=== PATIENT | female | born 1980 | race Caucasian/White ===

== ENCOUNTER 2019-05-05 09:59 | Outpatient (CLI) | payer BC, SELFPAY ==
--- NOTE | 2019-05-05 10:04 | MM_ITS ---
WS: [id number] DIAGNOSTIC BILATERAL DIGITAL MAMMOGRAM WITH CAD LEFT breast ultrasound, limited HISTORY: Palpable area LEFT breast. COMPARISON: None available. TECHNIQUE: Bilateral craniocaudad, mediolateral oblique, and mediolateral views are submitted. Spot c ompression LEFT CC and MLO. Computer aided detection utilized. Breast composition: The breasts are heterogeneously dense, which may obscure small masses. Triangular marker is placed near 6:00. There is no underlying abnormality noted radiographically. No soft tissu e thickening or distortion. LEFT breast ultrasound, limited. Ultrasound is directed to the palpable abnormality at 6 o'clock adjacent to the areola. There is a sm all complex cyst measuring 9 x 5 x 8 mm without increased vascularity. As this is not a simple cyst f urther evaluation is necessary. Recommend 6 month LEFT breast ultrasound follow-up of the complex cyst at 6:00. MM/[place] [id number] IMPRESSION: BI-RADS: 3-Probably Benign FOLLOW UP: 6 Month Follow-up
--- NOTE | 2019-05-05 10:09 | US_ITS ---
WS: [id number] DIAGNOSTIC BILATERAL DIGITAL MAMMOGRAM WITH CAD LEFT breast ultrasound, limited HISTORY: Palpable area LEFT breast. COMPARISON: None available. TECHNIQUE: Bilateral craniocaudad, mediolateral oblique, and mediolateral views are submitted. Spot c ompression LEFT CC and MLO. Computer aided detection utilized. Breast composition: The breasts are heterogeneously dense, which may obscure small masses. Triangular marker is placed near 6:00. There is no underlying abnormality noted radiographically. No soft tissu e thickening or distortion. LEFT breast ultrasound, limited. Ultrasound is directed to the palpable abnormality at 6 o'clock adjacent to the areola. There is a sm all complex cyst measuring 9 x 5 x 8 mm without increased vascularity. As this is not a simple cyst f urther evaluation is necessary. Recommend 6 month LEFT breast ultrasound follow-up of the complex cyst at 6:00. US/US breast LT limited* [id number] IMPRESSION: BI-RADS: 3-Probably Benign FOLLOW UP: 6 Month Follow-up
== END 2019-05-05 10:00 | disposition home or self-care (01) ==
LOC: RADSHAW 09:59
PROVIDERS: Family Provider Family Medicine; PCP Family Medicine; Visit Provider Family Medicine
DX: N60.02 Solitary cyst of left breast (principal); N63.20 Unspecified lump in the left breast, unspecified quadrant
CPT/HCPCS: 76642; 77066

== ENCOUNTER 2019-07-07 14:59 | Inpatient (IN) | payer BC, SELFPAY ==
[2019-07-07] VITALS (81 sets, daily range): BP systolic 129–166; BP diastolic 81–105; PULSE 65–134; RESP 14–18; TEMP 36.8–37.2; O2SAT 83–100; BMI 33.8
--- NOTE | 2019-07-07 15:00 | ECG_ITS ---
Measurements Intervals [place] Rate: 134 P: 50 AR: 132 QRS: 15 QRSD: 87 T: 49 QT: 331 QTc: [address] & T-WAVE ABNORMALITY No previous ECG available for comparison Electronically Signed On 07-07-2019 21:55:17 CDT by Mignon Hollingsworth M.D. [email or web address]
--- NOTE | 2019-07-07 15:00 | XR_ITS ---
WS: [id number] PORTABLE CHEST HISTORY: Overdose. COMPARISON: None available. Decreased lung volumes due to poor inspiration. No pneumonia. No pleural effusion or pneumothorax. Cardiac size: Normal. Mediastinum/Aorta: Normal mediastinum. No osseous abnormality seen. XR/XR chest 1V portable [id number] IMPRESSION: Poor inspiration. Otherwise negative.
--- NOTE | 2019-07-07 15:11 | ED_ITS ---
HPI - Overdose General: Chief Complaint: Overdose Stated Complaint: PROBABLE OVERDOSE Time Seen by Provider: 07/07/19 15:00 Source: EMS Mode of arrival: EMS Limitations: altered mental status History of Present Illness: HPI Narrative: 39-year-old female who took an unknown amount of Ambien and intent to kill her self. She does have an empty bottle of 10 mg Ambien's that originally had 30 in it. Patient here will wake to painful stimuli but is unable to give any full history. complaint: intentional overdose Onset (ago): hour(s) Review of Systems General: Reports: ROS unobtainable due to mental status [facility] ED PFS: Medical History Abnormal uterine bleeding 03/05/2018---> TSH-0.99 for normal CBC-5.6<11.5/35.3> 424 --Mirena IUD (Lot number [id number], Expiration Date: 08/2020) placed on 04/04/2018 without difficulty. She has largely no cycles on the Mirena and is extremely happy with this effect. Bipolar disorder, unspecified Managed on medication by her primary care provider Dr. Beverly. No pertinent past medical history Hypertension, Diabetes, Heart Disease, Stroke, Hypercholesterolemia, Thyroid Problems, Breast Cancer, Ovarian Cancer, Uterine Cancer, Colon Cancer, DVT/PE. Her primary care provider is Dr. Beverly Surgical History S/P section x 3 --1997, 2003, 2006. S/P cholecystectomy Laparoscopic surgery in 2001 S/P tubal ligation 2006 during section Family History Family/Other Diabetes Maternal aunt, maternal uncle, Paternal aunt, paternal uncle Thyroid condition maternal aunt Grandmother Diabetes Maternal and paternal Uterine cancer paternal, age at diagnosis unknown Stroke maternal Grandfather Diabetes maternal Heart disease maternal Mother Hyperlipidemia Autoimmune disorder affecting Brother Hyperlipidemia Hypertension Denies family history of Colon cancer Ovarian cancer Breast cancer Social History (Updated 07/07/19 @ 16:38 by Myke Clark MD) Smoking and tobacco status: unknown if ever smoked Alcohol intake: never Substance/Drug Use: never Additional social history: - Tobacco Use: Started smoking at age 15 and smoked one pack per day until she quit at age 20. Denies any tobacco use since then. 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 Physical Exam Const: COMMON NORMALS: apparent distress, negative for patient oriented x3 and negative for alert EXAM LIMITATIONS: altered mental status HENMT: COMMON NORMALS: normocephalic and atraumatic HEAD & SCALP: normocephalic and atraumatic Eye: COMMON NORMALS: Equal, round and reactive pupils present and EOMs intact bilaterally PUPIL: Yes Equal, round and reactive pupils present Neck/C-Spine: COMMON NORMALS: full ROM and supple Chest: COMMONS NORMALS: normal inspection of the chest and normal palpation of entire chest wall Resp: COMMON NORMALS: normal respiratory effort, No retractions, No use of accessory muscles and clear to auscultation bilaterally AUSCULTATION: clear to auscultation bilaterally Cardio: COMMON NORMALS: regular rate, regular rhythm and No murmurs present (Cardio) RATE: regular rate RHYTHM: regular rhythm GI: COMMON NORMALS: Normal to inspection, nondistended, normoactive bowel sounds present, Soft to palpation, non-tender and no masses PALPATION: Yes Soft to palpation Extremity: COMMON NORMALS: normal to inspection and full ROM Neuro: COMMON NORMALS: moves all extremities; negative for patient oriented x3 SENSORIUM/ORIENTATION: No alert Psych: COMMON NORMALS: negative for mental status grossly normal Skin: COMMON NORMALS: no rashes or lesions noted and no wounds GENERAL SKIN EXAM: no rashes or lesions noted Course Vital Signs: Vital signs: Vital Signs Temperature 98.9 F 07/07/19 15:00 Pulse Rate 134 H 07/07/19 16:01 Respiratory Rate 16 07/07/19 16:01 Blood Pressure 153/98 07/07/19 16:01 Pulse Oximetry 98 07/07/19 16:01 MDM - Overdose MDM Narrative: Medical decision making narrative: Patient presents here with altered mental status likely from an overdose. Patient overdosed on Ambien and has been lethargic here but is protecting her own airway. Spoke to Dr. Lees and will admit to the ICU. Patient also placed under a 96-hour hold. Lab Data: Labs: Lab Results 05/07/07/19 07/07/19 Range/Units 15:30 15:30 16:01 WBC 9.4 (4.0-10.0) 10^3/ uL RBC 4.83 (4.1-5.3) 10^6/u L Hgb 14.2 (11.5-15.3) g/dL Hct 43.3 (37.0-47.0) % MCV 89.6 (81-99) fL MCH 29.4 (28.0-34.0) pg MCHC 32.8 (30.0-36.0) g/dL RDW 12.8 (12.1-15.1) % Plt Count 394 (130-400) 10^3/c mm MPV 10.4 (7.4-10.4) fL Neut % (Auto) 75.2 % Lymph % (Auto) 19.5 % [place] % (Auto) 4.6 % Eos % (Auto) 0.1 % Baso % (Auto) 0.3 % Neut # (Auto) 7.1 (1.8-7.7) 10^3/u L Lymph # (Auto) 1.8 (0.8-4.8) 10^3/u L [place] # (Auto) 0.4 (0.2-0.9) 10^3/u L Eos # (Auto) 0.0 (0.0-0.8) 10^3/u L Baso # (Auto) 0.0 (0.0-0.1) 10^3/u L Nucleated RBC % (a uto) 0 % Nucleated RBCs # 0.0 /100WBC Sodium 140 (136-145) mmol/L Potassium 4.1 (3.5-5.1) mmol/L Chloride 104 (98-107) mmol/L Carbon Dioxide 22 (22-29) mmol/L Anion Gap 18.1 (5-19) BUN 6 (6-20) mg/dL Creatinine 0.6 (0.5-0.9) mg/dL GFR Calculation 111.9 (90-130) mL/min Glucose 112 (65-115) mg/dL Calculated Osmolal ity 287 (285-295) mOsm/k g Calcium 9.5 (8.5-10.5) mg/dL Total Bilirubin 0.5 (0.15-1.2) mg/dL AST 17 (0-32) U/L ALT 15 (0-33) U/L Alkaline Phosphata se 90 (35-105) IU/L Total Protein 7.0 (6.6-8.7) g/dL Albumin 4.6 (3.5-5.2) g/dL Globulin 2.4 (1.3-4.6) g/dL HCG, Qual Negative (Negative) Salicylates < 0.3 L (3-10) mg/dL Urine Opiates Scre en (Negative) ng/mL Acetaminophen < 5.0 L (10-30) ug/mL Ur Barbiturates Sc reen (Negative) ng/mL Ur Phencyclidine S crn (Negative) ng/mL Ur Amphetamines Sc reen (Negative) ng/mL U Benzodiazepines Scrn (Negative) ng/mL Urine Cocaine Scre en (Negative) ng/mL U Marijuana (THC) Screen (Negative) ng/mL Ethyl Alcohol < 10 (0-10) mg/dL 07/07/19 Range/Units 16:01 WBC (4.0-10.0) 10^3/ uL RBC (4.1-5.3) 10^6/u L Hgb (11.5-15.3) g/dL Hct (37.0-47.0) % MCV (81-99) fL MCH (28.0-34.0) pg MCHC (30.0-36.0) g/dL RDW (12.1-15.1) % Plt Count (130-400) 10^3/c mm MPV (7.4-10.4) fL Neut % (Auto) % Lymph % (Auto) % [place] % (Auto) % Eos % (Auto) % Baso % (Auto) % Neut # (Auto) (1.8-7.7) 10^3/u L Lymph # (Auto) (0.8-4.8) 10^3/u L [place] # (Auto) (0.2-0.9) 10^3/u L Eos # (Auto) (0.0-0.8) 10^3/u L Baso # (Auto) (0.0-0.1) 10^3/u L Nucleated RBC % (a uto) % Nucleated RBCs # /100WBC Sodium (136-145) mmol/L Potassium (3.5-5.1) mmol/L Chloride (98-107) mmol/L Carbon Dioxide (22-29) mmol/L Anion Gap (5-19) BUN (6-20) mg/dL Creatinine (0.5-0.9) mg/dL GFR Calculation (90-130) mL/min Glucose (65-115) mg/dL Calculated Osmolal ity (285-295) mOsm/k g Calcium (8.5-10.5) mg/dL Total Bilirubin (0.15-1.2) mg/dL AST (0-32) U/L ALT (0-33) U/L Alkaline Phosphata se (35-105) IU/L Total Protein (6.6-8.7) g/dL Albumin (3.5-5.2) g/dL Globulin (1.3-4.6) g/dL HCG, Qual (Negative) Salicylates (3-10) mg/dL Urine Opiates Scre en Negative (Negative) ng/mL Acetaminophen (10-30) ug/mL Ur Barbiturates Sc reen Negative (Negative) ng/mL Ur Phencyclidine S crn Negative (Negative) ng/mL Ur Amphetamines Sc reen Negative (Negative) ng/mL U Benzodiazepines Scrn Negative (Negative) ng/mL Urine Cocaine Scre en Negative (Negative) ng/mL U Marijuana (THC) Screen Negative (Negative) ng/mL Ethyl Alcohol (0-10) mg/dL Imaging Data^: CXR: Attestation: I personally reviewed and interpreted this imaging study as follo ws: Radiologist's impression: [address] [address] XRay Report Signed Patient: Vero Fleming Unit #: [id number] : 1980 Age/Sex: 39 / F ADM Date: 07/07/19 Loc: ER Room/Bed: Attending Dr: Ordering Provider/Ordering MD: Jodee Ha MD Date of Service: 07/07/19 Procedure(s): XR chest 1V portable [id number] Accession Number(s): [id number] Report Number: [id number] WS: [id number] PORTABLE CHEST HISTORY: Overdose. COMPARISON: None available. Decreased lung volumes due to poor inspiration. No pneumonia. No pleural effusion or pneumothorax. Cardiac size: Normal. Mediastinum/Aorta: Normal mediastinum. No osseous abnormality seen. XR/XR chest 1V portable [id number] IMPRESSION: Poor inspiration. Otherwise negative. EKG Data^: EKG 1: Attestation: I personally reviewed and interpreted this EKG as follows: EKG interpretation date: 07/07/19 EKG interpretation time: 15:29 Interpretation: sinus tach hr [address] or t wave abnormalities qrs 87 qtc 410 Critical Care Time Critical Care Time: Critical Care Time: Yes Total Critical Care Time: 36 Attestation: This case had a high probability of a clinically significant, sudden, or life threatening deterioration of this patient's condition which required my full and direct attention, intervention and personal management. Discharge Plan Discharge Patient Disposition: Admitted As Inpatient Clinical Impression: Drug overdose Qualifiers: Encounter type: initial encounter Injury intent: intentional self-harm Qualified Code(s): T50.902A - Poisoning by unspecified drugs, medicaments and biological substances, intentional self-harm, initial encounter Condition: Stable Referrals: Paco Beverly MD [Primary Care Provider] - Coding Level of Care Code ED [employer] Captain for Chg Fwd Exam Comprehensive
[2019-07-07] MEDS: sodium chloride 0.9% 1,000 ML 999 ML IV (15:26)
--- NOTE | 2019-07-07 15:32 | PC.NURSE ---
Patient is not responding to verbal stimuli. Patient only responding to painful stimuli.
[2019-07-07 15:36] LABS: Basophils % 0.3 %; Eosinophils % 0.1 %; Hematocrit 43.3 % (37.0-47.0); Hemoglobin 14.2 g/dL (11.5-15.3); Lymphocytes # 1.8 10^3/uL (0.8-4.8); Lymphocytes % 19.5 %; Mean Corpuscular HGB Conc 32.8 g/dL (30.0-36.0); Mean Corpuscular Hemoglobin 29.4 pg (28.0-34.0); Mean Corpuscular Volume 89.6 fL (81-99); Mean Platelet Volume 10.4 fL (7.4-10.4); Monocytes # 0.4 10^3/uL (0.2-0.9); Monocytes % 4.6 %; Neutrophils # 7.1 10^3/uL (1.8-7.7); Neutrophils % 75.2 %; Nucleated Red Blood Cells % 0 %; Platelet Count 394 10^3/cmm (130-400); Red Blood Count 4.83 10^6/uL (4.1-5.3); Red Cell Distribution Width 12.8 % (12.1-15.1); White Blood Count 9.4 10^3/uL (4.0-10.0)
[2019-07-07 15:55] LABS: Alanine Aminotransferase 15 U/L (0-33); Albumin Level 4.6 g/dL (3.5-5.2); Alkaline Phosphatase 90 IU/L (35-105); Anion Gap 18.1 (5-19); Aspartate Amino Transferase 17 U/L (0-32); Blood Urea Nitrogen 6 mg/dL (6-20); Calcium 9.5 mg/dL (8.5-10.5); Carbon Dioxide 22 mmol/L (22-29); Chloride 104 mmol/L (98-107); Globulin 2.4 g/dL (1.3-4.6); Glomerular Filtration Rate 111.9 mL/min (90-130); Glucose 112 mg/dL (65-115); Osmolality Calculated 287 mOsm/kg (285-295); Potassium 4.1 mmol/L (3.5-5.1); Sodium 140 mmol/L (136-145); Total Bilirubin 0.5 mg/dL (0.15-1.2)
[2019-07-07 15:59] LABS: Acetaminophen < 5.0 ug/mL (10-30); Alcohol Level < 10 mg/dL (0-10); Salicylate < 0.3 mg/dL (3-10)
[2019-07-07 16:29] LABS: HCG Qualitative Urine. Negative (Negative)
[2019-07-07 16:34] LABS: Amphetamines Screen Urine Negative (Negative); Barbiturates Screen Urine Negative (Negative); Benzodiazepines Screen Urine Negative (Negative); Cocaine Screen Urine Negative (Negative); Opiate Screen Urine Negative (Negative); PCP Screen Urine Negative (Negative); THC Screen Urine Negative (Negative)
--- NOTE | 2019-07-07 16:35 | CTR_ITS ---
PROCEDURE INFORMATION: Exam: CT Head Without Contrast Exam date and time: 07/07/2019 4:38 PM Age: 39 years old Clinical indication: Altered mental status/memory loss; Additional info: AMS TECHNIQUE: Imaging protocol: Computed tomography of the head without contrast. Radiation optimization: All CT scans at this facility use at least one of these dose optimization techniques: automated exposure control; mA and/or kV adjustment per patient size (includes targeted exams where dose is matched to clinical indication); or iterative reconstruction. COMPARISON: No relevant prior studies available. RADIATION DOSE METRICS: Total DLP: 1333.9 mGy-cm FINDINGS: Brain: Normal. No hemorrhage. Unremarkable white matter. No mass effect. Ventricles: Normal. No ventriculomegaly. Bones/joints: Unremarkable. No acute fracture. Sinuses: Visualized sinuses are unremarkable. No fluid levels. Mastoid air cells: Visualized mastoid air cells are well aerated. Soft tissues: Unremarkable. Other findings: Artifact results in degraded image quality. CT/CT head wo con* [id number] IMPRESSION: Nonacute. Radiation Dose CTDIVOL = (mGy): DLP = 1333.9 (mGy-cm)
--- NOTE | 2019-07-07 16:36 | P.HP_ITS ---
Providers/Chief Complaint Primary Care Provider: Paco Beverly MD Chief Complaint: PROBABLE OVERDOSE History of Present Illness Vero Fleming is a 39 year old female who presents to the hospital with an overdose of Ambien. She has indicated to nursing, as well as her by text that this was a suicide attempt. Patient is unable to answer significant questions currently but on significant stimulation she can answer yes or no before falling asleep. She does indicate she took Ambien and this was a suicide attempt to me as well. I did call her , who reports he received a text around 2:20 PM stating that he should let the kids come over and she is already done it. reports she is hinted at suicide before but is never had any previous attempts. He does not believe she took anything other than Ambien. After receiving the text he called on a friend who is with the police to check on her, who found her having already taken the pills and alerted EMS and she was brought to the emergency department. To her 's knowledge she had not recently been ill. Review of Systems General: Reports: ROS unobtainable due to mental status (Unable to obtain secondary to lethargy.) Medications/Allergies Home Medications Medication Instructions Recorded Confirmed Last Taken Type Unable to Assess 07/07/19 07/07/19 Unknown History Allergies Allergy/AdvReac Type Severity Reaction Status Date / Time amoxicillin Allergy hives Verified 06/24/19 15:41 fluoxetine [From Prozac] Allergy hives Verified 06/24/19 15:41 Sulfa (Sulfonamide Allergy hives Verified 06/24/19 15:41 Antibiotics) prochlorperazine AdvReac muscle Verified 06/24/19 15:41 [From Compazine] constriction PFSH Acute PFSH: Medical History Abnormal uterine bleeding 03/05/2018---> TSH-0.99 for normal CBC-5.6<11.5/35.3> 424 --Mirena IUD (Lot number [id number], Expiration Date: 08/2020) placed on 04/04/2018 without difficulty. She has largely no cycles on the Mirena and is extremely happy with this effect. Bipolar disorder, unspecified Managed on medication by her primary care provider Dr. Beverly. No pertinent past medical history Hypertension, Diabetes, Heart Disease, Stroke, Hypercholesterolemia, Thyroid Problems, Breast Cancer, Ovarian Cancer, Uterine Cancer, Colon Cancer, DVT/PE. Her primary care provider is Dr. Beverly Surgical History S/P section x 3 --1997, 2003, 2006. S/P cholecystectomy Laparoscopic surgery in 2001 S/P tubal ligation 2006 during section Family History Family/Other Diabetes Maternal aunt, maternal uncle, Paternal aunt, paternal uncle Thyroid condition maternal aunt Grandmother Diabetes Maternal and paternal Uterine cancer paternal, age at diagnosis unknown Stroke maternal Grandfather Diabetes maternal Heart disease maternal Mother Hyperlipidemia Autoimmune disorder affecting Brother Hyperlipidemia Hypertension Denies family history of Colon cancer Ovarian cancer Breast cancer Social History (Updated 07/07/19 @ 16:38 by Myke Clark MD) Smoking and tobacco status: unknown if ever smoked Alcohol intake: never Substance/Drug Use: never Additional social history: - Tobacco Use: Started smoking at age 15 and smoked one pack per day until she quit at age 20. Denies any tobacco use since then. 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 Vitals/I&O/Wt Last Vital Signs Temp 98.9 F 07/07/19 15:00 Pulse 134 H 07/07/19 16:01 Resp 16 07/07/19 16:01 BP 153/98 07/07/19 16:01 Pulse Ox 98 07/07/19 16:01 Weight last 48 hrs Weight 83.915 kg Physical Exam Narrative: EXAM NARRATIVE: General exam is a lethargic white female, with a normal oxygen saturation on 2 L of oxygen and heart rate of 134. Blood pressure is elevated. HEENT: Pupils equally round. Oropharynx clear. Neck supple no lymphadenopathy or thyromegaly Cardiovascular tachycardic without murmur. Regular. Lungs clear no wheezing or crackles Abdomen is soft obese nontender with positive bowel sounds. No obvious organomegaly was deferred Extremities no cyanosis clubbing or edema, cap refill brisk Skin no rash Neuro no obvious focal deficits, but certainly cannot cooperate with a full exam currently secondary to lethargy from overdose. Data : 07/07/19 15:30 07/07/19 15:30 Other data: CT of head is planned and pending. Alcohol, acetaminophen, salicylate level not concerning. Urine drug screen negative. Liver function tests normal. hCG negative. Chest x-ray without infiltrate. EKG demonstrates sinus tachycardia, normal axis, nonspecific ST-T wave changes. A&P Assessment and plan (1) Drug overdose: Presumably with Ambien. Total quantity unknown. believes she had this filled several days ago, and had close to a full bottle of 10 mg pills. Secondary to association of lethargy, CT scan of head is been ordered and pending. Place urinary catheter as it is likely she may have some urinary retention secondary to her lethargy and overdose. Monitor closely that she continues to protect her airway. Poison control literature reviewed and placed in the chart. Into notes supportive care, flumazenil for significant decompensation is sometimes used but can precipitate seizures Status: Acute Qualifiers: Encounter type: initial encounter Injury intent: intentional self-harm Qualified Code(s): T50.902A - Poisoning by unspecified drugs, medicaments and b iological substances, intentional self-harm, initial encounter (2) Suicide attempt: Psychiatry consultation. 96-hour hold. One-on-one Status: Acute (3) Tachycardia: Presumably secondary to Ambien. 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
[2019-07-07] MEDS: sodium chloride 0.9% 1,000 ML 150 ML IV (18:11)
[2019-07-07 18:21] LABS: Thyroid Stimulating Hormone 1.44 uIU/mL (0.27-4.20)
[2019-07-08] VITALS (69 sets, daily range): BP systolic 113–162; BP diastolic 69–117; PULSE 58–103; RESP 11–33; TEMP 36.9–37.2; O2SAT 89–99; BMI 33.8
[2019-07-08] MEDS: sodium chloride 0.9% 1,000 ML 150 ML IV (00:37)
[2019-07-08 03:50] LABS: Basophils % 0.2 %; Eosinophils # 0.1 10^3/uL (0.0-0.8); Eosinophils % 0.6 %; Hematocrit 39.1 % (37.0-47.0); Hemoglobin 12.5 g/dL (11.5-15.3); Lymphocytes # 2.2 10^3/uL (0.8-4.8); Lymphocytes % 24.6 %; Mean Corpuscular Hemoglobin 29.1 pg (28.0-34.0); Mean Corpuscular Volume 91.1 fL (81-99); Mean Platelet Volume 10.9 fL (7.4-10.4); Monocytes # 0.5 10^3/uL (0.2-0.9); Monocytes % 6.2 %; Neutrophils % 68.2 %; Nucleated Red Blood Cells % 0 %; Platelet Count 329 10^3/cmm (130-400); Red Blood Count 4.29 10^6/uL (4.1-5.3); Red Cell Distribution Width 13.1 % (12.1-15.1); White Blood Count 8.7 10^3/uL (4.0-10.0)
[2019-07-08 04:22] LABS: Alanine Aminotransferase 12 U/L (0-33); Albumin Level 3.8 g/dL (3.5-5.2); Alkaline Phosphatase 77 IU/L (35-105); Anion Gap 12.6 (5-19); Aspartate Amino Transferase 12 U/L (0-32); Blood Urea Nitrogen 4 mg/dL (6-20); Calcium 8.7 mg/dL (8.5-10.5); Carbon Dioxide 22 mmol/L (22-29); Chloride 110 mmol/L (98-107); Globulin 2.4 g/dL (1.3-4.6); Glomerular Filtration Rate 138.1 mL/min (90-130); Glucose 102 mg/dL (65-115); Osmolality Calculated 288 mOsm/kg (285-295); Potassium 3.6 mmol/L (3.5-5.1); Sodium 141 mmol/L (136-145); Total Bilirubin 0.6 mg/dL (0.15-1.2); Total Protein 6.2 g/dL (6.6-8.7)
--- NOTE | 2019-07-08 07:24 | P.PN_ITS ---
Subjective Subjective: Interval history: Vero reports allergies this was the intent on taking the Ambien yesterday. Medications: Reviewed: Yes Vitals/I&O/Wt Last Vital Signs Temp 98.5 F 07/08/19 05:10 Pulse 69 07/08/19 05:10 Resp 13 07/08/19 05:10 BP 135/87 07/08/19 05:10 Pulse Ox 95 07/08/19 05:10 07/07/19 07/08/19 07/08/19 22:59 06:59 14:59 Intake Total 1000 / 1000 1165 / 2165 Output Total 450 / 450 400 / 850 Balance 550 / 550 765 / 1315 Weight last 48 hrs Weight 83.915 kg Physical Exam Narrative: EXAM NARRATIVE: General exam no apparent distress Cardiovascular regular rate and rhythm without murmur Lungs clear no wheezing or crackles Abdomen is soft, positive bowel sounds Extremities no cyanosis clubbing or edema Urinary Catheter Management^: Rich: Cath Placed During This Visit: yes Reason for Continuing Indwelling Catheter: Accurate Measurement of Urinary Output in Critically Ill Patients Urinary Catheter Date of Insertion: 07/07/19 Urinary Catheter Time of Insertion: 18:01 Data : 07/08/19 03:10 07/08/19 03:10 A&P Assessment and plan (1) Drug overdose: Presumably with Ambien. Total quantity unknown. believes she had this filled several days ago, and had close to a full bottle of 10 mg pills. Secondary to association of lethargy, CT scan of head was ordered and no acute findings were noted. She is medically stable this morning. She may be transferred down to neur opsychiatry floor for further treatment for her depression Status: Acute Qualifiers: Encounter type: initial encounter Injury intent: intentional self-harm Qualified Code(s): T50.902A - Poisoning by unspecified drugs, medicaments and biological substances, intentional self-harm, initial encounter (2) Suicide attempt: Psychiatry consultation. 96-hour hold. One-on-one Status: Acute (3) Tachycardia: Presumably secondary to Ambien. Resolved. 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
--- NOTE | 2019-07-08 14:34 | P.CONIM_ITS ---
Providers/Reason for Consult Consulting Physican/Specialty*: Julius Lucio MD. Psychiatry. Reason for Consult*: Evaluate for ongoing treatment and need for inpatient hospitalization. Attending Physician: Myke Clark MD Primary Care Provider: Paco Beverly MD Psych Consult HPI History of Present Illness Vero Fleming is a 39 year old female The patient presents today reporting that she is struggling with her , that they are not seeing eye to eye, and he asked her to move out, and she is just not sure how to deal. She reports that she has gone to [facility] for some time for her medication, but that she has not gone for some time now. She reports she has no history of psychiatric hospitalizations. She reports that at age 20, after not having a significant psychiatric youth, she started taking medications shortly after her was killed about three months after she was . She reports that he was a bottling machine operator and he was killed in the line of duty. She reports that she stopped taking medication in about 2002. She reports that she had bad post- after her daughter was born, and she said that in the last fifteen years or so, she has been mostly on medication. She reports that going to [facility] became too expensive, and so she started going to her PCP, but then with a job sometime ago, she reports that she changed insurance and that made it harder to go there due to the expense, and so she has not really had psychiatric oversight for a couple years now. She endorses depression, feelings of helplessness, hopelessness, worthlessness, guilt, mood swings are not within the same day, and they are not reportedly to the point where she is a volcano, but she reports it is bad at times. She reports that when she is having, what she describes as highs, that she blows money, has been the cause of affairs, but she feels like over the last twelve years it has calmed down those symptoms that she has had. She reports it is 100 dollars a visit on the sliding scale at [facility], and she could not afford it. PSYCHIATRIC HISTORY: As above. She reports she is on Celexa 30 mg in the morning and Lamictal 50 mg po bid. SUBSTANCE ABUSE HISTORY: She reports that she does not smoke cigarettes, drink alcohol, smoke marijuana, or use any other illicit drugs. She has never been to rehab, never had a DUI. FAMILY HISTORY: She reports that there are mental health issues on her mother?s side of the family. There are addiction issues on both sides of the family. She has an aunt on mother and father?s side that have attempted suicide, and a cousin on mother?s side who completed. She endorses that she has had previous suicide attempts in her life. DEVELOPMENTAL HISTORY: She reports that she had no issues with her mother?s or delivery, and learned to walk and talk, and met her developmental milestones on time. She reports that she did not need speech therapy, learning support, emotional support, or special education classes. PSYCHOSOCIAL HISTORY: She reports her mother and father were together when she was born, and they got a divorce in 2002. She reports she has an older brother who is the product of that relationship. She endorses her childhood was decent she believes, but there was emotional abuse. 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 She endorses being heterosexual and her longest relationship was 19 years. She has been two times and once. She has a 21 year old son, a 16 year old daughter, and a 12 year old son. She has never been in the , and she reports her longest employment was with the [employer] for about four years. She currently lives in an apartment, but she states that she was living in a house with her and two of her children until this incident, where she feels like she will be having to move out. LEGAL HISTORY: She denies ever being in shelter or having major legal issues. MEDICAL HISTORY: She reports having celiac disease. Meds Current Medications: Current Medications Generic Name Dose Route Start Last Admin Trade Name Freq PRN Reason Stop Dose Admin Lamotrigine 50 mg 07/08/19 18:00 07/08/19 18:37 Lamictal PO 50 mg BID NIA Administration Trazodone HCl 50 mg 07/08/19 18:03 07/08/19 20:47 Desyrel PO 50 mg BEDTIME PRN Administration SLEEP PFSH NPU PFSH: Medical History Abnormal uterine bleeding 03/05/2018---> TSH-0.99 for normal CBC-5.6<11.5/35.3> 424 --Mirena IUD (Lot number [id number], Expiration Date: 08/2020) placed on 04/04/2018 without difficulty. She has largely no cycles on the Mirena and is extremely happy with this effect. Bipolar disorder, unspecified Managed on medication by her primary care provider Dr. Beverly. No pertinent past medical history Hypertension, Diabetes, Heart Disease, Stroke, Hypercholesterolemia, Thyroid Problems, Breast Cancer, Ovarian Cancer, Uterine Cancer, Colon Cancer, DVT/PE. Her primary care provider is Dr. Beverly Surgical History S/P section x 3 --1997, 2003, 2006. S/P cholecystectomy Laparoscopic surgery in 2001 S/P tubal ligation 2006 during section Family History Family/Other Diabetes Maternal aunt, maternal uncle, Paternal aunt, paternal uncle Thyroid condition maternal aunt Grandmother Diabetes Maternal and paternal Uterine cancer paternal, age at diagnosis unknown Stroke maternal Grandfather Diabetes maternal Heart disease maternal Mother Hyperlipidemia Autoimmune disorder affecting Brother Hyperlipidemia Hypertension Denies family history of Colon cancer Ovarian cancer Breast cancer Social History (Updated 07/07/19 @ 16:38 by Myke Clark MD) Smoking and tobacco status: unknown if ever smoked Alcohol intake: never Additional social history: - Tobacco Use: Started smoking at age 15 and smoked one pack per day until she quit at age 20. Denies any tobacco use since then. 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 Mental Status Exam MSE Comments: This is an obese, white female, with adequate dress, grooming, and eye contact. No abnormal movements with mild psychomotor retardation. Cooperative with exam in no acute distress. Speech was normal rate and volume. M ood described as depressed, affect congruent. Thought process, organized. Thought content: patient denied any suicidal or homicidal ideation, there were no delusions reported or noted, patient denied any auditory or visual hallucinations. Attention, concentration, and memory appear intact but were not formally tested. He is alert and oriented times three. Insight and judgment are good. Vitals/I&O/Wt Last Vital Signs Temp 98.5 F 07/09/19 00:03 Pulse 75 07/09/19 00:03 Resp 17 07/09/19 00:03 BP 154/99 07/09/19 00:03 Pulse Ox 98 07/09/19 00:03 07/08/19 07/08/19 07/09/19 14:59 22:59 06:59 Intake Total 1250 / 1250 Output Total 550 / 550 Balance 700 / 700 Weight last 48 hrs Weight 83.915 kg Weight 83.915 kg Physical Exam Urinary Catheter Management^: Rich: Cath Placed During This Visit: yes, but has since been removed by the nurse Reason for Continuing Indwelling Catheter: Decision to DC Catheter Urinary Catheter Date of Insertion: 07/07/19 Urinary Catheter Time of Insertion: 18:01 Date Urinary Catheter Removed: 07/08/19 Time Urinary Catheter Discontinued: 09:02 A&P Assessment and plan (1) Suicide attempt: Status: Acute (2) Drug overdose: Status: Acute Qualifiers: Encounter type: initial encounter Injury intent: intentional self-harm Qualified Code(s): T50.902A - Poisoning by unspecified drugs, medicaments and biological substances, intentional self-harm, initial encounter (3) Bipolar disorder, unspecified: Status: Acute Additional A&P Information This is a 39 year old, , white female, with a fairly long history of mental health issues and depression, with anxiety and report of history of bipolar disorder, who presents after some unclear conflicts at home, and overdose on Ambien. Continue current medication. Will increase Lamictal with a goal dose of 100 mg twice a day. Encourage individual, group, and milieu therapy. Continue q 15-minute check for safety. Encourage resumption of therapy and follow-up with the psychiatrist. Involuntary Hold Information 96 Hour Hold: 96 Hour Hold Ending Date: 07/13/19 96 Hour Hold Ending Time: 15:25 Attestations NPU Medical Necessity Statement*: Inpatient hospitalization is medically necessary and the clinically appropriate intervention at this time. We will transfer to the neuro-psych unit where she will be inpatient for over two midnights. Likely length of stay three to five days. 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
[2019-07-08] MEDS: lamoTRIgine 25 mg Tablet 50 MG PO (18:37)
[2019-07-08] MEDS: trazodone 50 mg Tablet PO (20:47)
[2019-07-09] VITALS: BP 154/99; PULSE 75; RESP 17; TEMP 36.9; O2SAT 98
[2019-07-09 00:03] VITALS: BP 154/99; PULSE 75; RESP 17; TEMP 36.9; O2SAT 98
[2019-07-09 06:00] VITALS: BP 123/78; PULSE 58; RESP 16; TEMP 37; O2SAT 99
[2019-07-09] MEDS: lamoTRIgine 25 mg Tablet 50 MG PO ×2 (08:18→17:12)
[2019-07-09] MEDS: citalopram 20 mg Tablet 30 MG PO (08:18)
--- NOTE | 2019-07-09 11:30 | P.PN_ITS ---
Subjective NPU Subjective: Interval history: Vero presents today reporting that she is working with the social work team towards a plan for appropriate outpatient care. We discussed the risks benefits and alternatives of increasing her Lamictal as well as her Celexa and she understood and agreed to proceed as is documented in this note. She reports that she has been a conversation with her and she is feeling a little more safe about discharge planning. Mental Status Exam MSE Comments: This is an obese, white female, with adequate dress, grooming, and eye contact. No abnormal movements. Cooperative with exam in no acute distress. Speech was normal rate and volume. Mood described as optimistic, affect congruent. Thought process, organized. Thought content: patient denied any suicidal or homicidal ideation, there were no delusions reported or noted, patient denied any auditory or visual hallucinations. Attention, concentration, and memory appear intact but were not formally tested. She is alert and oriented times three. Insight and judgment are fair and improving. Vitals/I&O/Wt Last Vital Signs Temp 98.5 F 07/09/19 21: Pulse 89 07/09/19 21:27 Resp 17 07/09/19 21:27 BP 136/91 07/09/19 21:27 Pulse Ox 98 07/09/19 21:27 Weight last 48 hrs Weight 83.915 kg Physical Exam Urinary Catheter Management^: Rich: Cath Placed During This Visit: yes, but has since been removed by the nurse Reason for Continuing Indwelling Catheter: Decision to DC Catheter Urinary Catheter Date of Insertion: 07/07/19 Urinary Catheter Time of Insertion: 18:01 Date Urinary Catheter Removed: 07/08/19 Time Urinary Catheter Discontinued: 09:02 Data NPU : 07/08/19 03:10 07/08/19 03:10 A&P Assessment and plan (1) Bipolar disorder, unspecified: Status: Acute (2) Drug overdose: Status: Acute Qualifiers: Encounter type: initial encounter Injury intent: intentional self-harm Qualified Code(s): T50.902A - Poisoning by unspecified drugs, medicaments and biological substances, intentional self-harm, initial encounter (3) Suicide attempt: Status: Acute (4) Cluster B personality disorder in adult: Status: Acute Additional A&P Information This is a 39 year old, , white female, with a fairly long history of mental health issues and depression, with anxiety and report of history of bipolar disorder, who presents after some unclear conflicts at home, and overdose on Ambien. Continue current medication. Will increase Lamictal with a goal dose of 100 mg twice a day. Increase Celexa to 40 mg po qam Encourage individual, group, and milieu therapy. Continue q 15-minute check for safety. Encourage resumption of therapy and follow-up with the psychiatrist. Involuntary Hold Information 96 Hour Hold: 96 Hour Hold Ending Date: 07/13/19 96 Hour Hold Ending Time: 15:25 Attestations NPU Medical Necessity Statement*: Inpatient hospitalization is medically necessary and the clinically appropriate intervention at this time. We will evaluate medication and make adjustments as indicated. Likely length of stay 2 to 4 days. 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
[2019-07-09 13:22] VITALS: BP 102/69; PULSE 74; RESP 18; TEMP 36.7; O2SAT 99
[2019-07-09] MEDS: lamoTRIgine 25 mg Tablet PO (14:37)
[2019-07-09] MEDS: citalopram 20 mg Tablet 10 MG PO (14:38)
[2019-07-09 19:36] VITALS: BP 136/91; PULSE 89; RESP 17; TEMP 36.9; O2SAT 98
[2019-07-09] MEDS: trazodone 50 mg Tablet PO (20:39)
[2019-07-09 21:27] VITALS: BP 136/91; PULSE 89; RESP 17; TEMP 36.9; O2SAT 98
[2019-07-10 06:00] VITALS: BP 120/80; PULSE 76; RESP 18; TEMP 36.8; O2SAT 99
[2019-07-10] MEDS: lamoTRIgine 25 mg Tablet 75 MG PO (08:32)
[2019-07-10] MEDS: citalopram 20 mg Tablet 40 MG PO (08:32)
[2019-07-10 13:54] VITALS: BP 128/88; PULSE 106; RESP 18; TEMP 37.3; O2SAT 98
--- NOTE | 2019-07-10 16:23 | P.DS_ITS ---
Diagnoses at Discharge Discharge Diagnosis (1) Bipolar disorder, unspecified: Status: Acute Problem details: Managed on medication by her primary care provider Dr. Beverly. (2) Drug overdose: Status: Acute Qualifiers: Encounter type: initial encounter Injury intent: intentional self-harm Qualified Code(s): T50.902A - Poisoning by unspecified drugs, medicaments and biological substances, intentional self-harm, initial encounter (3) Suicide attempt: Status: Acute (4) Cluster B personality disorder in adult: Status: Acute Reason for Visit Reason for Visit: Reason For Visit: PROBABLE OVERDOSE Brief History: History of Present Illness Vero Fleming is a 39 year old female The patient presents today reporting that she is struggling with her , that they are not seeing eye to eye, and he asked her to move out, and she is just not sure how to deal. She reports that she has gone to [facility] for some time for her medication, but that she has not gone for some time now. She reports she has no history of psychiatric hospitalizations. She reports that at age 20, after not having a significant psychiatric youth, she started taking medications shortly after her was killed about three months after she was . She reports that he was a account officer and he was killed in the line of duty. She reports that she stopped taking medication in about 2002. She reports that she had bad post- after her daughter was born, and she said that in the last fifteen years or so, she has been mostly on medication. She reports that going to [facility] became too expensive, and so she started going to her PCP, but then with a job sometime ago, she reports that she changed insurance and that made it harder to go there due to the expense, and so she has not really had psychiatric oversight for a couple years now. She endorses depression, feelings of helplessness, hopel essness, worthlessness, guilt, mood swings are not within the same day, and they are not reportedly to the point where she is a volcano, but she reports it is bad at times. She reports that when she is having, what she describes as highs, that she blows money, has been the cause of affairs, but she feels like over the last twelve years it has calmed down those symptoms that she has had. She report s it is 100 dollars a visit on the sliding scale at [facility], and she could not afford it. PSYCHIATRIC HISTORY: As above. She reports she is on Celexa 30 mg in the morning and Lamictal 50 mg po bid. SUBSTANCE ABUSE HISTORY: She reports that she does not smoke cigarettes, drink alcohol, smoke marijuana, or use any other illicit drugs. She has never been to rehab, never had a DUI. FAMILY HISTORY: She reports that there are mental health issues on her mother?s side of the family. There are addiction issues on both sides of the family. She has an aunt on mother and father?s side that have attempted suicide, and a cousin on mother?s side who completed. She endorses that she has had previous suicide attempts in her life. DEVELOPMENTAL HISTORY: She reports that she had no issues with her mother?s or delivery, and learned to walk and talk, and met her developmental milestones on time. She reports that she did not need speech therapy, learning support, emotional support, or special education classes. PSYCHOSOCIAL HISTORY: She reports her mother and father were together when she was born, and they got a divorce in 2002. She reports she has an older brother who is the product of that relationship. She endorses her childhood was decent she believes, but there was emotional abuse. She graduated from high school and did do some [employer]. She endorses being heterosexual and her longest relationship was 19 years. She has been two times and once. She has a 21 year old son, a 16 year old daughter, and a 12 year old son. She has never been in the , and she reports her longest employment was with the [employer] for about four years. She currently lives in an apartment, but she states that she was living in a house with her and two of her children until this incident, where she feels like she will be having to move out. LEGAL HISTORY: She denies ever being in long-term or having major legal issues. MEDICAL HISTORY: She reports having celiac disease. Hospital Course Hospital Course The patient presented to the emergency room after a reported intentional overdose on Ambien. She had been having conflicts with her and had gotten depressed and distraught. She reportedly took a substantial amount. She was sent to the ICU for definitive treatment for those issues. After a day or two, she was medically stabilized and was sent to the neuropsychiatric unit for definitive care. On the unit, she was open to adjusting her medication and slowly acclimated to the individual, group, and milieu therapies provided. Her Celexa was increased to 40 mg po qam, and her Lamictal was increased from 50 mg bid, to 75 mg bid, with a discussion about the risks, benefits, and alternatives of the Lamictal increase, including Marmolejo-Don syndrome. She had a good response to the changes and treatment. During the hospitalization, the patient had routine laboratory studies which were within normal limits, except for a few outliers. Additionally, she had a general medical evaluation which was within normal limits and revealed no new acute processes. Discharge Summary At the time of discharge the patient denied all lethality, was absent psychosis, and mood and anxiety were well managed. The patient endorsed a plan to follow-up with outpatient services, as recommended. She was evaluated and deemed to be absent credible lethality, and had achieved the maximum benefit from an inpatient hospitalization, and so she was discharged. Involuntary Hold Information 96 Hour Hold: 96 Hour Hold Ending Date: 07/13/19 96 Hour Hold Ending Time: 15:25 Mental Status Exam MSE Comments: This is an obese, white female, with adequate dress, grooming, and eye contact. No abnormal movements. Cooperative with exam in no acute distress. Speech was normal rate and volume. Mood described as much better; affect congruent. Thought process, organized. Thought content: patient denied any suicidal or homicidal ideation, there were no delusions reported or noted, patient denied any auditory or visual hallucinations. Attention, concentration, and memory appeared intact but none were formally tested. She is alert and oriented times three. Insight and judgment are fair and improving. Physical Exam Urinary Catheter Management^: Rich: Cath Placed During This Visit: yes, but has since been removed by the nurse Reason for Continuing Indwelling Catheter: Decision to DC Catheter Urinary Catheter Date of Insertion: 07/07/19 Urinary Catheter Time of Insertion: 18:01 Date Urinary Catheter Removed: 07/08/19 Time Urinary Catheter Discontinued: 09:02 Discharge Data Data Completed and Pending: Completed Studies During Hospitalization Category Date Time Status CT head wo con* [id number] Urgent Cat Scan 07/07/19 16:35 Completed XR chest 1V bib ble [id number] Urgent Exams 07/07/19 15:00 Completed Vitals: Last Vital Signs Temp 99.1 F 07/10/19 13:54 Pulse 106 H 07/10/19 13:54 Resp 18 07/10/19 13:54 BP 128/88 07/10/19 13:54 Pulse Ox 98 07/10/19 13:54 Discharge Plan Discharge Patient Disposition: Home, Self-Care Condition: Stable Prescriptions: New citalopram 20 mg Tablet 40 mg PO DAILY 30 Days Qty: 30 RF: 1 Lamictal 150 mg tablet 75 mg PO BID 30 Days Qty: 30 RF: 1 Discontinued lamotrigine [Lamictal] 25 mg Tablet 50 mg PO BID RF: 0 citalopram 20 mg tablet 30 mg PO DAILY RF: 0 No Action estradiol 1 mg tablet 1 mg PO DAILY 7 Days Qty: 7 RF: 1 Discharge Orders: Discharge Order (Routine); Ordered 07/10/19 Ordered By: Julius Lucio Referrals: [facility] [Other] - 4-7 days [facility] [Outside] - 4-7 days (request initial intake. walk-in hours are Saturday through Saturday 7:30 a.m.-2:30 p.m. Saturday through Saturday. 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
[2019-07-10 16:24] VITALS: BP 128/88; PULSE 106; RESP 18; TEMP 37.3; O2SAT 98
== END 2019-07-10 16:35 | disposition home or self-care (01) | DRG 918 ==
LOC: ER 16:35 → ICU 17:00 → NP 07-08 15:37
PROVIDERS: Emergency Medicine; Admitting Provider Internal Medicine; PCP Family Medicine; Visit Provider Internal Medicine
DX: T42.6X2A Poisoning by other antiepileptic and sedative-hypnotic drugs, intentional self-harm, initial encounter (principal); R45.851 Suicidal ideations; R00.0 Tachycardia, unspecified; F31.9 Bipolar disorder, unspecified; Z63.0 Problems in relationship with spouse or partner; F60.89 Other specific personality disorders
CPT/HCPCS: 12345; 36415; 51702; 70450; 71045; 80053; 80306; 80307; 81025; 84443; 85025; 93005; 99283; J7030

== ENCOUNTER → 2019-07-30 10:43 | Outpatient (BNVA) | payer BC, SELFPAY | PROVIDERS: PCP Family Medicine; Visit Provider Nurse Practitioner Psychiatric/Mental Health | DX: F31.9 Bipolar disorder, unspecified (principal); F60.9 Personality disorder, unspecified | CPT/HCPCS: 99214 ==

== ENCOUNTER → 2019-08-13 08:23 | Outpatient (BNVA) | payer BC, SELFPAY | PROVIDERS: PCP Family Medicine; Visit Provider Counselor Professional | DX: F31.9 Bipolar disorder, unspecified (principal); F60.9 Personality disorder, unspecified | CPT/HCPCS: 90834 ==

== ENCOUNTER → 2019-08-27 08:07 | Outpatient (BNVA) | payer BC, SELFPAY | PROVIDERS: PCP Family Medicine; Visit Provider Nurse Practitioner Psychiatric/Mental Health | DX: F31.9 Bipolar disorder, unspecified (principal); F60.9 Personality disorder, unspecified; F43.12 Post-traumatic stress disorder, chronic | CPT/HCPCS: 99212 ==

== ENCOUNTER → 2019-08-28 08:25 | Outpatient (BNVA) | payer BC, SELFPAY | PROVIDERS: PCP Family Medicine; Visit Provider Counselor Professional | DX: F31.9 Bipolar disorder, unspecified (principal); F60.9 Personality disorder, unspecified | CPT/HCPCS: 90834 ==

== ENCOUNTER → 2019-10-22 08:40 | Outpatient (BNVA) | payer BC, SELFPAY | PROVIDERS: PCP Family Medicine; Visit Provider Nurse Practitioner Psychiatric/Mental Health | DX: F31.9 Bipolar disorder, unspecified (principal); F60.9 Personality disorder, unspecified | CPT/HCPCS: G0463 ==

== ENCOUNTER → 2019-11-26 08:22 | Outpatient (BNVA) | payer BC, SELFPAY | PROVIDERS: PCP Family Medicine; Visit Provider Nurse Practitioner Psychiatric/Mental Health | DX: F31.9 Bipolar disorder, unspecified (principal); F60.9 Personality disorder, unspecified | CPT/HCPCS: G0463 ==

== ENCOUNTER → 2019-12-14 17:10 | Outpatient (BNVA) | payer BC, SELFPAY | PROVIDERS: PCP Family Medicine; Visit Provider Nurse Practitioner | DX: S86.911A Strain of unspecified muscle(s) and tendon(s) at lower leg level, right leg, initial encounter (principal); X58.XXXA Exposure to other specified factors, initial encounter | CPT/HCPCS: 73562 ==

== ENCOUNTER → 2019-12-22 07:54 | Outpatient (BNVA) | payer BC, SELFPAY | PROVIDERS: PCP Family Medicine; Visit Provider Nurse Practitioner Psychiatric/Mental Health | DX: F60.9 Personality disorder, unspecified (principal); F31.9 Bipolar disorder, unspecified | CPT/HCPCS: G0463 ==

== ENCOUNTER 2019-12-23 08:56 | Outpatient (CLI) | payer BC, SELFPAY | END 2019-12-23 08:57 | disposition home or self-care (01) | LOC: SPT 12-24 08:56 | PROVIDERS: PCP Family Medicine; Visit Provider Specialist | DX: Z46.89 Encounter for fitting and adjustment of other specified devices (principal); M25.561 Pain in right knee | CPT/HCPCS: 97760; L1832 ==

== ENCOUNTER 2019-12-25 06:55 | Outpatient (CLI) | payer BC, SELFPAY ==
--- NOTE | 2019-12-25 07:15 | MR_ITS ---
WS: [id number] MRI RIGHT KNEE NONCONTRAST TECHNIQUE: Axial PD, coronal PD fat sat, coronal PD, sagittal PD, and sagittal PD fat-sat images obta ined. CLINICAL INFORMATION: M25.569 - Pain in unspecified knee COMPARISON: None. FINDINGS: Distal quadriceps and patella tendons are intact. Normal anterior and posterior cruciate ligaments. P repatellar and infrapatellar soft tissue edema. Eccentric prepatellar fluid collection consistent wit h patella bursitis. No significant joint effusion. Mild lateral subluxation of the patella. Recommend correlation for patellar instability. Normal medial and lateral patellar retinaculum. No bony contus ion. Normal medial and lateral meniscus. No acute appearing meniscal tears. Medial and lateral joint kelsie rtments are normal. Medial and lateral collateral ligaments are intact. Normal bone marrow signal in the tibial plateau. Soft tissue edema about the lateral joint line. MR/MR knee RT wo con* [id number] IMPRESSION: 1. Normal anterior and posterior cruciate ligaments. 2. Prepatellar and infrapatellar soft tissue edema. Fluid collection prepatell ar bursa likely due to prepatellar bursitis. 3. Mild lateral subluxation of the patella.Correlation for patellar instabilit y. Normal patellar retinaculum. No contusion. 4. Normal medial and lateral meniscus. No acute appearing meniscal tears. 5. Medial and lateral collateral ligaments appear intact. 6. Normal bone marrow signal. 7. Slightly hypertrophic patella. No significant chondromalacia.
== END 2019-12-25 06:56 | disposition home or self-care (01) ==
LOC: RADSHAW 06:58
PROVIDERS: PCP Family Medicine; Visit Provider Specialist
DX: M25.561 Pain in right knee (principal); R60.0 Localized edema
CPT/HCPCS: 73721

== ENCOUNTER 2020-01-12 06:00 | Outpatient (RCR) | payer BC, SELFPAY | END 2020-01-28 23:00 | disposition home or self-care (01) | LOC: SPT 06:00 | PROVIDERS: PCP Family Medicine; Referring Provider Specialist; Visit Provider Specialist | DX: M23.51 Chronic instability of knee, right knee (principal); M25.561 Pain in right knee | CPT/HCPCS: 97033; 97110; 97161 ==

== ENCOUNTER → 2020-02-15 07:54 | Outpatient (BNVA) | payer BC, SELFPAY | PROVIDERS: PCP Family Medicine; Visit Provider Nurse Practitioner Psychiatric/Mental Health | DX: F31.9 Bipolar disorder, unspecified (principal); F60.9 Personality disorder, unspecified | CPT/HCPCS: 99212 ==

== ENCOUNTER → 2020-04-18 07:58 | Outpatient (BNVA) | payer BC, SELFPAY | PROVIDERS: PCP Family Medicine; Visit Provider Nurse Practitioner Psychiatric/Mental Health | DX: F60.9 Personality disorder, unspecified (principal); F31.9 Bipolar disorder, unspecified | CPT/HCPCS: 99213 ==

== ENCOUNTER → 2021-03-31 13:54 | Outpatient (BNVA) | payer OTHER, SELFPAY | PROVIDERS: PCP Family Medicine; Visit Provider Nurse Practitioner Women's Health | DX: Z01.419 Encounter for gynecological examination (general) (routine) without abnormal findings (principal); N93.9 Abnormal uterine and vaginal bleeding, unspecified | CPT/HCPCS: 84443; 85025 ==

== ENCOUNTER → 2021-04-03 10:07 | Outpatient (BNVA) | payer OTHER, SELFPAY | PROVIDERS: PCP Family Medicine; Visit Provider Nurse Practitioner Women's Health | DX: N93.9 Abnormal uterine and vaginal bleeding, unspecified (principal) | CPT/HCPCS: 76830 ==

== ENCOUNTER 2021-05-12 14:05 | Outpatient (CLI) | payer OTHER, SELFPAY ==
--- NOTE | 2021-05-12 14:30 | MM_ITS ---
WS: [id number] BILATERAL SCREENING 3D TOMOSYNTHESIS DIGITAL MAMMOGRAM WITH CAD HISTORY: Z12.39 - Encounter for other screening for malignant neoplasm. COMPARISON: 05/05/2019 Bilateral CC and MLO views submitted. Computer aided detection analyzed. Breast composition: There are scattered areas of fibroglandular density. No suspicious masses, microc alcifications or architectural distortion. MM/[place] [id number] IMPRESSION: BI-RADS: 1-Negative FOLLOW UP: 1 Year Follow-up
== END 2021-05-12 14:06 | disposition home or self-care (01) ==
LOC: RAD 14:08
PROVIDERS: PCP Family Medicine; Visit Provider Nurse Practitioner Women's Health
DX: Z12.31 Encounter for screening mammogram for malignant neoplasm of breast (principal); N39.3 Stress incontinence (female) (male)
CPT/HCPCS: 77063; 77067; 87635

== ENCOUNTER 2021-05-18 10:15 | Inpatient (IN) | payer OTHER, SELFPAY ==
[2021-05-15 10:30] VITALS: BMI 32.1
--- NOTE | 2021-05-15 10:43 | ANES.PREANE2 ---
Pre-Anesthetic Assessment Height/Weight: Height 1.57 m Weight 79.832 kg Operation Date: 05/18/21 07:00 Proposed Procedures p Total Abdominal Hysterectomy 07505/n93.9(Not Applicable) - Sandro Smiley MD s Salpingectomy(Bilateral) - Sandro Smiley MD Familial anesthetic complications: None Social Tobacco and No alcohol Exam alert, oriented x 3, clear to auscultation bilaterally and regular rate & rhythm Airway Mallampati: Class I Dentition: other (3 teeth missing) CV/HEM Hypertension GI celiac Anesthetic Plan ASA status: 2 Anesthesia: General Risk of > 500 ml blood loss (7ml/kg in children): No Medications/Allergies Home Medications Medication Instructions Recorded Confirmed Last Taken Type levocetirizine 5 mg tablet (24HR 5 mg PO DAILY 11/24/19 05/15/21 Unknown History Allergy Relief) ferrous sulfate 143 mg (45 mg 286 mg PO DAILY tab 12/21/19 05/15/21 Unknown History iron) tablet,extended release citalopram 40 mg tablet (Celexa) 40 mg PO .every morning #30 tab 04/18/20 05/15/21 Unknown Rx trazodone 100 mg tablet 100 mg PO DAILY PRN #30 tab 04/18/20 05/15/21 Unknown Rx losartan 100 mg tablet 100 mg PO DAILY 03/31/21 05/15/21 Unknown History Allergies Allergy/AdvReac Type Severity Reaction Status Date / Time amoxicillin Allergy hives--can Verified 05/15/21 10:28 take penicillin fluoxetine [From Prozac] Allergy hives Verified 05/15/21 10:28 Sulfa (Sulfonamide Allergy hives Verified 05/15/21 10:28 Antibiotics) prochlorperazine AdvReac muscle Verified 05/15/21 10:28 [From Compazine] [facility] Anesthesia Medical History (Updated 05/04/21 @ 13:47 by Sandro Smiley MD) Bipolar disorder, unspecified Diagnosed at the age of 20. Used to be on medication managed by [facility]. Now gets refills with Dr. Beverly but does continue to have therapy with [facility]. Hypertension Diagnosed in 2019 and is on medication managed by her primary care provider. Does not have a cathead worker No pertinent past medical history Denies diabetes asthma seizures DVT/PE PCP: Dr. Beverly Suicide attempt (~06/2019) Surgical History S/P section x 3 --1997, 2003, 2006. S/P cholecystectomy Laparoscopic surgery in 2001 S/P tubal ligation 2006 during section Family History (Updated 05/03/21 @ 09:50 by Jazmín Lindsey, RN) Family/Other Diabetes Maternal aunt, maternal uncle, Paternal aunt, paternal uncle Thyroid condition maternal aunt Grandmother Diabetes Maternal and paternal Uterine cancer paternal, age at diagnosis unknown Stroke maternal Grandfather Diabetes maternal Heart disease maternal Mother Hyperlipidemia Diabetes Brother Hyperlipidemia Hypertension Denies family history of Colon cancer Ovarian cancer Breast cancer Data Anesthesia Cardiac Studies: No Data to Display
[2021-05-18] VITALS (26 sets, daily range): BP systolic 111–147; BP diastolic 58–85; PULSE 73–116; RESP 12–18; TEMP 36.2–36.9; O2SAT 91–99; BMI 32.1
[2021-05-18 06:17] LABS: OR HCG Qualitative Urine Negative (Negative)
[2021-05-18] MEDS: sodium chloride 0.9% 1,000 ML 30 ML IV (06:34)
[2021-05-18 06:41] LABS: Basophils % 0.5 %; Eosinophils % 2.7 %; Hematocrit 39.5 % (37.0-47.0); Hemoglobin 12.7 g/dL (11.5-15.3); Lymphocytes % 36.4 %; Mean Corpuscular HGB Conc 32.2 g/dL (30.0-36.0); Mean Corpuscular Hemoglobin 27.6 pg (28.0-34.0); Mean Corpuscular Volume 85.9 fl (81-99); Mean Platelet Volume 10.4 fL (7.4-10.4); Monocytes % 7.7 %; Neutrophils % 52.5 %; Platelet Count 348 10^3/cmm (130-400); Red Cell Distribution Width 13.9 % (12.1-15.1); White Blood Count 6.6 10^3/uL (4.0-10.0)
[2021-05-18 06:42] LABS: Eosinophils # 0.2 10^3/uL (0.0-0.8); Lymphocytes # 2.4 10^3/uL (0.8-4.8); Monocytes # 0.5 10^3/uL (0.2-0.9); Neutrophils # 3.47 10^3/uL (1.8-7.7); Nucleated Red Blood Cells % 0 %
--- NOTE | 2021-05-18 06:55 | P.HPUD_ITS ---
Surgery/Procedure H&P Update DATE OF PROCEDURE: May 18, 2021 DATE H&P PERFORMED: 05/03/21 H&P UPDATE INFORMATION: I have reviewed H&P completed within last 30 days, I have examined patient prior to procedure, No changes to prior documentation and [place] [facility] [place] date indicated PREOP DIAGNOSIS: AUB PLANNED PROCEDURE: Operation Date: 05/18/21 07:00 Proposed Procedures p Total Abdominal Hysterectomy 10030/n93.9(Not Applicable) - Sandro Jim MD s Salpingectomy(Bilateral) - Sandro Smiley MD
--- NOTE | 2021-05-18 06:57 | ANES.PAUD2 ---
Pre-Anesthetic Update Pre-Anesthetic Assessment: Date of Surgery/Procedure: 05/18/21 Preop Diagnosis: AUB Proposed Procedure: Operation Date: 05/18/21 07:00 Proposed Procedures p Total Abdominal Hysterectomy 32279/n93.9(Not Applicable) - Sandro Smiley MD s Salpingectomy(Bilateral) - Sandro Smiley MD Any changes to Pre-Anesthetic Assessment?: No Last Intake: Intake Last Liquid Date 05/17/21 Last Liquid Time 21:00 Last Solid Date 05/17/21 Last Solid Time 17:30 Labs Last 48hrs: Short CBC 05/18/21 Range/Units 06:30 WBC 6.6 (4.0-10.0) 10^3/ uL Hgb 12.7 (11.5-15.3) g/dL Hct 39.5 (37.0-47.0) % MCV 85.9 (81-99) fl Plt Count 348 (130-400) 10^3/c mm Neut % (Auto) 52.5 % Neut # (Auto) 3.47 (1.8-7.7) 10^3/u L Vitals: Temperature 98.2 F 05/18/21 06:13 Temperature Source Temporal Artery S can 05/18/21 06:13 Pulse Rate 78 05/18/21 06:13 Respiratory Rate 16 05/18/21 06:13 Blood Pressure 138/83 05/18/21 06:13 Blood Pressure Aye n 101 05/18/21 06:13 Pulse Oximetry 97 05/18/21 06:13 Oxygen Delivery Me thod 05/18/21 06:13 Exam: Pre-Anes Outpt Exam: alert, oriented x 3, clear to auscultation bilaterally and regular rate & rhythm Cardiac Studies: No Data to Display
[2021-05-18 06:59] LABS: Alanine Aminotransferase 11 U/L (0-33); Alkaline Phosphatase 111 IU/L (35-105); Aspartate Amino Transferase 12 U/L (0-32); Blood Urea Nitrogen 8 mg/dL (6-20); Carbon Dioxide 23 mmol/L (22-29); Chloride 107 mmol/L (98-107); Globulin 2.8 g/dL (1.3-4.6); Glomerular Filtration Rate 110.7 mL/min (90-130); Glucose 104 mg/dL (65-115); Osmolality Calculated 287 mOsm/kg (285-295); Sodium 139 mmol/L (136-145); Total Bilirubin 0.4 mg/dL (0.15-1.2); Total Protein 6.8 g/dL (6.6-8.7)
[2021-05-18] MEDS: clindamycin 600 MG/50 ML PREMIX 100 MG IV (07:10)
--- NOTE | 2021-05-18 07:30 | SUR.OPER ---
family updated of surgical status
--- NOTE | 2021-05-18 08:29 | P.OP_ITS ---
Operative Report Date of procedure: May 18, 2021 Pre-op diagnosis: intraoperative bladder injury Post-op diagnosis: intraoperative bladder injury Procedure done: Cystorrhaphy Specimens removed/disposition: None Pathology: None Surgeon: Mike Traffic Operations Manager: Edson Anesthesia: General Estimated blood loss: Minimal Urine output: Not measured Complications: None Findings: Thinning of the bladder muscularis off of the mucosa during the dissection of the severely scarred uterus with adhesions to the bladder. No full-thickness tear. Brief History: I was called to the operating room for intraoperative consultation regarding bladder condition and patient with hysterectomy and severe adhesions. Concern was for possible full-thickness bladder injury. Procedure: The patient was asleep and exposed. Dr. Sandhu was involved in her procedure. On examination there was no obvious tear in the bladder that was full-thickness. The bladder was filled with about 120 cc of saline with blue dye. No obvious extravasation could be identified with careful inspection of the areas of concern. No increased fluid in the wound. What was noted though on the dome of the bladder anteriorly was an area of scarification of the bladder wall with some separation of the muscle off of the mucosa. This corresponded with the densely adhesed area of the uterus to the bladder. Based on this thinning it was decided to do a primary closure of the adventitial muscularis layer over the thinned area. This was accomplished with a running 3-0 Vicryl. The repair was intact and good. Patient was turned back over to Dr. Sandhu in my portion was completed. Recommendations: 1. Maintain Rich catheter for 1 week with routine voiding trial 2. Expect no long-term issues related to this intraoperative finding.
--- NOTE | 2021-05-18 08:31 | SUR.OPER ---
family updated of surgical status
--- NOTE | 2021-05-18 08:33 | SUR.OPER ---
5988 dr. jerome called to evaluate bladder due to adhesions.
--- NOTE | 2021-05-18 08:34 | SUR.OPER ---
0822 bladder back filled with sterile water and indigo carmine 120ml.
[2021-05-18] MEDS: HYDROmorphone 1 mg/mL INJ 1 mL 0.5 MG IVP ×2 (10:20→10:37)
--- NOTE | 2021-05-18 10:22 | PM.OP ---
Operative Report Date of procedure: May 18, 2021 OPERATIVE REPORT Date of surgery: 05/18/2021 Date of dictation: 05/18/2021 Preoperative diagnosis: Abnormal uterine bleeding desiring surgical intervention, previous delivery x3 Postoperative diagnosis/findings: 8-week size anteverted uterus, dense additions of uterus onto anterior abdominal wall and dense adhesions of the bladder onto the anterior surface of the uterus almost to the level of the round ligaments. Procedure done: Total abdominal hysterectomy, bilateral salpingectomy Specimens removed/disposition of specimens: Uterus cervix bilateral tubes sent to pathology Surgeon: Dr. Sadnro Sandhu museum assistant:Francisca peck Anesthesia: General endotracheal tube anesthesia Estimated blood loss: 150 ml Intravenous fluids: 1800 mL of LR Urine output: 150 mL of urine-clear Medications: As per anesthesia records Complications: Possible bladder injury--Dr. Mckeon was consulted intraoperatively-please refer to his operative report for details PROCEDURE: After consent was obtained patient was taken to the operating room where she was placed under general anesthesia. Sequential compression boots and Rich catheter were placed. She was prepped and draped in the usual sterile fashion in a dorsal supine position. A horizontal suprapubic incision was made using a scalpel --- this was done above the level of her scar as the scar was over the pubic bone. The incision was just at the level of her abdominal crease 2 cm above her pubic bone. And this was extended down to the Fascia using a combination of scalpel and Bovie. Good hemostasis was achieved in the subcutaneous field.. This was carried down to the fascia with electrocautery and a scalpel. Fascia was incised in the midline and extended laterally sharply. Rectus muscles were in the midline sharply and Peritoneum was identified. There was difficulty accessing the peritoneum as there was dense adhesions and planes were difficult to identify. The rectus muscle was further superiorly and peritoneum was entered at that point as it clearly was identified. Once peritoneal entry occurred it was noted that the uterus was densely adherent to the peritoneum/anterior abdominal wall. No ideations were noted on the posterior aspect of the uterus. These adhesions were taken down carefully sharply. Once the uterus was from the anterior abdominal wall the uterus was examined in the pelvis visualized. The tubes showed signs of surgery and ovaries appear normal. The bladder was noted to be densely adherent onto the uterus almost up to the level of the round ligaments with adhesions all down the middle of the uterus. Despite this the uterus was mobile. The fundus of the uterus was grasped with clamps to elevated. Using sharp dissection the bladder was taken off the anterior surface of the uterus. After the dense adhesion was taken down remainder of the bladder was taken off without any difficulty and was taken down to a level below the cervix. Examination of the bladder showed some concern for damage although no obvious cystotomy was noted. Decision was made to consult Dr. Mckeon and while he was on his way surgery was continued. The right round ligament, ovarian ligament and fallopian tube were grasped with the [employer] cautery device and the device was clamped cauterized and then cut this tissue. We then used the volumes to continue inferiorly in a sequential fashion clamping cutting and cauterizing the parametrial tissue taking care to stay medial and hold the bladder away from uterus. This was done up to the level of the uterine arteries which were then clamped cauterized and then cut. Backbleeding from the uterus was controlled with [id number] sutures. This was done first on the right side and then on the left side in a similar fashion. At this point Dr. Mckeon presented to the operating room and surgery turned over to him Please see his note for details which involved backfilling the bladder and reinforcement of an area of thinning-Cystoraphy. Straight clamps were placed at the level of the internal os. These were cut, and then tied with 0 Vicryl suture bilaterally. The bladder was then sharply dissected away from the cervix until it was carried below the level of the cervix. The remaining portion of the parametria was then serially clamped, cut, and suture ligated with 0 Vicryl suture bilaterally until the bottom of the cervix was reached. At this point, sharply curved clamps were placed across the top of the vagina and the remaining portion of the cervix excised. With this the uterus and cervix were removed. The cervix was inspected and noted to be complete. The corners of the cuff were secured with 0 Vicryl suture in a [place]ka fashion bilaterally. The remaining portion of the vaginal cuff was closed with 0 Vicryl suture in an interrupted [id number] fashion. The area was thoroughly inspected and noted to be hemostatic. It was irrigated and noted to be hemostatic. The bladder was noted to be away from vaginal cuff. Attention was then turned towards the fallopian tubes bilaterally. The fallopian tubes were grasped with Isak and using the abdominal Voyant the mesosalpinx was clamped cauterized and cut serially so that the fallopian tubes were and sent to pathology along with the uterus with the right fallopian tube tagged The pelvis was irrigated once again and small area of oozing near the left of was made hemostatic with a bvfugx-kf-sdynm suture. With this good hemostasis was achieved. Surgicel was placed over the vaginal cuff. Interceed was also placed over the bladder over area of cystorrhaphy. Packing in the abdomen was removed. The rectus muscle was reapproximated using continuous suture and good reapproximation was noted. Hemostasis was achieved in the muscle layer. The fascia was closed with 0- loop PDS in a continuous fashion and good reapproximation was obtained. The subcutaneous plane was irrigated well and hemostasis was achieved with the Bovie. It was reapproximated using 2-0 plain sutures in a continuous fashion. The skin was then closed with 4-0 Monocryl in a subcuticular fashion. Pressure dressing was applied onto the abdomen. Lap instrument and needle counts were correct x2. Rich catheter was replaced. Patient was extubated without difficulty and taken to the recovery room in a stable condition. Rich to stay in 7 days followed by voiding trial per Dr. Mckeon's recommendation This documentation was created by [employer] piano regulator inspector software (known for inherent piano regulator inspector error). Every effort was made to assure accuracy of piano regulator inspector. Any obvious errors or omissions should be clarified with the author of the document. Pre-op diagnosis:
[2021-05-18] MEDS: fentaNYL 50 mcg/mL INJ 2mL IVP (10:51)
--- NOTE | 2021-05-18 10:56 | SUR.PHASEI ---
1007 SCDS ON AND WORKING
[2021-05-18] MEDS: HYDROcodone-acetaminophen 5-325 mg Tablet PO ×2 (11:41→19:32)
[2021-05-18] MEDS: dextrose 5%-lactated ringers 1,000 ML 125 ML IV ×2 (11:41→20:03)
--- NOTE | 2021-05-18 13:16 | ANE.PACU2 ---
Inpatient post-anesthesia follow up: Airway intact: Yes Vital signs: Temperature 97.2 F Pulse Rate 97 Respiratory Rate 16 Blood Pressure 121/68 Pulse Oximetry 96 Oxygen Delivery Me thod Nasal Cannula Oxygen Flow Rate 2 Fraction of Inspir ed Oxygen Hydration adequate: Yes Nausea and vomiting: No Pain level: 8 Mental status: Baseline Additional Comments: Pain controlled on discharge from PACU. On floor receiving multi modal pain medications.
[2021-05-18] MEDS: HYDROmorphone 1 mg/mL INJ 1 mL 1.5 MG IVP ×2 (13:35→17:00)
[2021-05-18] MEDS: docusate sodium 100 mg Capsule PO (17:00)
[2021-05-18 18:50] LABS: Glucose Point of Care 174 mg/dL (70-110)
[2021-05-18] MEDS: ibuprofen 800 mg tablet PO (21:16)
[2021-05-19] MEDS: HYDROcodone-acetaminophen 5-325 mg Tablet PO ×3 (01:32→17:50)
[2021-05-19 04:00] VITALS: BP 133/85; PULSE 74; TEMP 36.6; O2SAT 97
[2021-05-19 05:17] LABS: Hematocrit 32.4 % (37.0-47.0); Hemoglobin 10.4 g/dL (11.5-15.3); Mean Corpuscular HGB Conc 32.1 g/dL (30.0-36.0); Mean Corpuscular Hemoglobin 28.3 pg (28.0-34.0); Mean Corpuscular Volume 88.3 fl (81-99); Mean Platelet Volume 10.6 fL (7.4-10.4); Platelet Count 325 10^3/cmm (130-400); Red Blood Count 3.67 10^6/uL (4.1-5.3); Red Cell Distribution Width 14.1 % (12.1-15.1); White Blood Count 12.4 10^3/uL (4.0-10.0)
[2021-05-19] MEDS: dextrose 5%-lactated ringers 1,000 ML 125 ML IV ×2 (05:35→14:55)
--- NOTE | 2021-05-19 07:40 | PM.PN ---
Subjective Subjective: SUBJECTIVE: Ms. Keen is feeling okay. Does have pain but it is controlled with p.o. pain medication. She has not needed IV for pain since last night. She is ambulating well. Catheter still in place. Has been using incentive spirometer. Denies nausea, vomiting, fever, chills, shortness of breath and chest pain. She has been tolerating clears without any nausea and states that she has started feeling her timing go-go and she has been burping. Reports occasional shaking in her legs. No calf pain or tenderness. Has not yet passed flatus. OBJECTIVE/PHYSICAL EXAM: Gen.: No acute distress Abdomen: Soft, nondistended, no rebound, no guarding tenderness around incision. Incision: Clean dry and intact with Steri-Strips--- dressing removed Legs: No calf tenderness, no pedal edema. ASSESSMENT AND PLAN: 41-year-old 3 para 2-1-0-3 status post total abdominal hysterectomy, bilateral salpingectomy with repair of bladder, postoperative day #1 -Continue routine care-p.o. pain medication -Encourage ambulation and incentive spirometer use -Continue clear liquid diet for passing gas and will advance to full and regular diet at that point Hep-Lock IV -Urine output is good. Discussed with patient circumstances of cases requiring cystorrhaphy. Reviewed recommendations to keep catheter in for 7 days followed by voiding trial and this process was reviewed with patient. Will start leg bag training today---nurse notified. -Labs reviewed normal--repeat CBC and CMP tomorrow -Anticipate discharge home in the next 2 to 3 days depending on how she feels in terms of recovery from surgery. -SCDs for DVT prophylaxis -We will restart blood pressure medications today-hold on mood medications for now. Vitals/I&O/Wt Last Vital Signs Temp 98.0 F 05/19/21 09:23 Pulse 74 05/19/21 09:23 Resp 16 05/19/21 09:23 BP 144/86 05/19/21 09:23 Pulse Ox 98 05/19/21 09:23 05/18/21 05/19/21 05/19/21 22:59 06:59 14:59 Intake Total 1000 / 2160 1000 / 3160 Output Total 1000 / 1700 1600 / 3300 300 / 300 Balance 0 / 460 -600 / -140 -300 / -300 Weight last 48 hrs Weight 176 lb Physical Exam Urinary Catheter Management: Rich Latex: Cath Placed During This Visit: yes Urinary Catheter Date of Insertion: 05/18/21 Urinary Catheter Time of Insertion: 07:20 Data : 05/19/21 05:00 05/18/21 06:30 Micro: Microbiology 05/18/21 09:30 Urine Culture - Preliminary Urine Catheterized Attestations Medical Necessity Statement*: Patient will need to stay 1-2 more midnights to recover from surgery Coding Level of Care Code Acute Academic Support Coordinator for Ever Milner
[2021-05-19] MEDS: ibuprofen 800 mg tablet PO ×3 (07:51→22:39)
[2021-05-19 07:54] VITALS: BP 133/74; PULSE 74; RESP 16; TEMP 36.8; O2SAT 96
[2021-05-19 09:20] VITALS: BP 144/86
[2021-05-19] MEDS: losartan 50 mg Tablet 100 MG PO (09:20)
[2021-05-19] MEDS: docusate sodium 100 mg Capsule PO ×2 (09:21→17:50)
[2021-05-19 09:23] VITALS: BP 144/86; PULSE 74; RESP 16; TEMP 36.6; TEMP 36.7; O2SAT 98
[2021-05-19 15:02] VITALS: BP 103/66; PULSE 60; RESP 17; TEMP 36.7; O2SAT 97
[2021-05-19 22:44] VITALS: BP 129/80; PULSE 74; TEMP 36.7; O2SAT 100
[2021-05-20] MEDS: HYDROcodone-acetaminophen 5-325 mg Tablet PO ×3 (00:01→12:05)
[2021-05-20] MEDS: acetaminophen 325 mg Tablet 650 MG PO ×2 (02:10→10:51)
[2021-05-20] MEDS: ibuprofen 800 mg tablet PO ×2 (05:11→14:49)
[2021-05-20 05:14] VITALS: BP 140/86; PULSE 65; TEMP 36.8; O2SAT 97
[2021-05-20 05:17] LABS: Basophils % 0.5 %; Eosinophils # 0.1 10^3/uL (0.0-0.8); Eosinophils % 0.7 %; Hematocrit 29.8 % (37.0-47.0); Hemoglobin 9.5 g/dL (11.5-15.3); Lymphocytes # 2.7 10^3/uL (0.8-4.8); Lymphocytes % 32.2 %; Mean Corpuscular HGB Conc 31.9 g/dL (30.0-36.0); Mean Corpuscular Hemoglobin 28.1 pg (28.0-34.0); Mean Corpuscular Volume 88.2 fl (81-99); Mean Platelet Volume 10.7 fL (7.4-10.4); Monocytes # 0.5 10^3/uL (0.2-0.9); Monocytes % 6.2 %; Neutrophils # 5.09 10^3/uL (1.8-7.7); Neutrophils % 60.2 %; Nucleated Red Blood Cells % 0 %; Platelet Count 273 10^3/cmm (130-400); Red Blood Count 3.38 10^6/uL (4.1-5.3); Red Cell Distribution Width 14.3 % (12.1-15.1); White Blood Count 8.5 10^3/uL (4.0-10.0)
[2021-05-20 05:41] LABS: Alanine Aminotransferase 12 U/L (0-33); Albumin Level 3.3 g/dL (3.5-5.2); Alkaline Phosphatase 75 IU/L (35-105); Aspartate Amino Transferase 17 U/L (0-32); Blood Urea Nitrogen 4 mg/dL (6-20); Calcium 8.3 mg/dL (8.5-10.5); Carbon Dioxide 23 mmol/L (22-29); Chloride 107 mmol/L (98-107); Globulin 1.9 g/dL (1.3-4.6); Glomerular Filtration Rate 136.6 mL/min (90-130); Glucose 95 mg/dL (65-115); Osmolality Calculated 283 mOsm/kg (285-295); Sodium 138 mmol/L (136-145); Total Bilirubin 0.2 mg/dL (0.15-1.2); Total Protein 5.2 g/dL (6.6-8.7)
[2021-05-20 05:47] LABS: Anion Gap 11.4 (5-19); Potassium 3.4 mmol/L (3.5-5.1)
[2021-05-20] MEDS: docusate sodium 100 mg Capsule PO (09:39)
[2021-05-20] MEDS: potassium chloride ER 10 mEq Tablet 20 MEQ PO (09:39)
[2021-05-20 09:40] VITALS: BP 134/84
[2021-05-20] MEDS: losartan 50 mg Tablet 100 MG PO (09:40)
[2021-05-20 09:42] VITALS: BP 134/84; PULSE 72; RESP 16; TEMP 36.7; O2SAT 99
--- NOTE | 2021-05-20 14:30 | PM.OBGYDC ---
Discharge Providers MAGNETIC PROSPECTING OPERATOR Date of Admission: 05/18/21 10:15 Date of Discharge: 05/20/21 Attending Provider at Admission: Sandro Smiley MD Attending Provider at Discharge: Sandro Smiley MD ADMISSION DIAGNOSIS: 41-year-old 3 para 3-0-0-3 Abnormal uterine bleeding Chronic hypertension Previous delivery x3 DISCHARGE DIAGNOSIS: 41-year-old 3 para 3-0-0-3 status post total abdominal hysterectomy, bilateral salpingectomy and bladder repair on 05/18/2021 Chronic hypertension PREHOSPITAL COURSE: Ms. Pham is a 41-year-old 3 para 3 who had a longstanding history of abnormal uterine bleeding. She had tried the Mirena for bleeding control and it spontaneously expelled and she desired definitive surgery and is scheduled for hysterectomy for which she presented on 05/18/2021. No changes in her history prior to admission HOSPITAL COURSE: She underwent an total abdominal hysterectomy with bilateral salpingectomy complicated by bladder injury which was repaired by urology. She did well on postoperative day 0 and was ambulating well, tolerating clear liquid diet. Pain was well-controlled with by mouth and IV pain medication. She denied nausea, vomiting, fever, chills, shortness of breath, leg pain. She had minimal vaginal bleeding. Rich catheter was kept overnight and she had adequate urine output. Plan was to keep the Rich catheter in for 7 days to allow for healing. On postoperative day #1 she continued to do well with stable vital signs and stable hemoglobin at 10.5. Rich catheter was kept in place and she was given leg bag training. She ambulated well started passing flatus and then tolerated a regular diet. She continued to do well on postoperative day #2 with stable vital signs and stable blood counts. She was discharged home on postoperative day #2 in a stable condition. Warning signs for wound infection, cuff infection, DVT/PE were reviewed with her. Post surgical activity restrictions were also reviewed with her at all her questions were answered to her satisfaction. She will follow up in 1 week for voiding trial. This documentation was created by [employer] presser cotton ginning software (known for inherent presser cotton ginning error). Every effort was made to assure accuracy of presser cotton ginning. Any obvious errors or omissions should be clarified with the author of the document. Primary Care Provider: Paco Beverly MD Reason for Visit Reason for Visit: abnormal uterine bleeding n93.9 Physical Exam Urinary Catheter Management: Rich Latex: Cath Placed During This Visit: yes Urinary Catheter Date of Insertion: 05/18/21 Urinary Catheter Time of Insertion: 07:20 History History History 3 Term 2 Miscarriages/Ectopic 0 1 Living Children 3 Discharge Data Studies Completed and Pending Pending at discharge Category Date Time Status Pathology: Surgical [PTH] Routine Pth 05/18/21 09:52 Received Laboratory Results WBC 8.5 10^3/uL (4.0-10.0) 05/20/21 05:04 RBC 3.38 10^6/uL (4.1-5.3) L 05/20/21 05:04 Hgb 9.5 g/dL (11.5-15.3) L 05/20/21 05:04 Hct 29.8 % (37.0-47.0) L 05/20/21 05:04 MCV 88.2 fl (81-99) 05/20/21 05:04 MCH 28.1 pg (28.0-34.0) 05/20/21 05:04 MCHC 31.9 g/dL (30.0-36.0) 05/20/21 05:04 RDW 14.3 % (12.1-15.1) 05/20/21 05:04 Plt Count 273 10^3/cmm (130-400) 05/20/21 05:04 MPV 10.7 fL (7.4-10.4) H 05/20/21 05:04 Neut % (Auto) 60.2 % 05/20/21 05:04 Lymph % (Auto) 32.2 % 05/20/21 05:04 Blount % (Auto) 6.2 % 05/20/21 05:04 Eos % (Auto) 0.7 % 05/20/21 05:04 Baso % (Auto) 0.5 % 05/20/21 05:04 Neut # (Auto) 5.09 10^3/uL (1.8-7.7) 05/20/21 05:04 Lymph # (Auto) 2.7 10^3/uL (0.8-4.8) 05/20/21 05:04 Blount # (Auto) 0.5 10^3/uL (0.2-0.9) 05/20/21 05:04 Eos # (Auto) 0.1 10^3/uL (0.0-0.8) 05/20/21 05:04 Baso # (Auto) 0.0 10^3/uL (0.0-0.1) 05/20/21 05:04 Nucleated RBC % (auto) 0 % 05/20/21 05:04 Nucleated RBCs # 0.0 /100WBC 05/20/21 05:04 Sodium 138 mmol/L (136-145) 05/20/21 05:04 Potassium 3.4 mmol/L (3.5-5.1) L 05/20/21 05:04 Chloride 107 mmol/L (98-107) 05/20/21 05:04 Carbon Dioxide 23 mmol/L (22-29) 05/20/21 05:04 Anion Gap 11.4 (5-19) 05/20/21 05:04 BUN 4 mg/dL (6-20) L 05/20/21 05:04 Creatinine 0.5 mg/dL (0.5-0.9) 05/20/21 05:04 GFR Calculation 136.6 mL/min (90-130) H 05/20/21 05:04 Glucose 95 mg/dL (65-115) 05/20/21 05:04 POC Glucose 174 mg/dL (70-110) H 05/18/21 18:44 Calculated Osmolality 283 mOsm/kg (285-295) L 05/20/21 05:04 Calcium 8.3 mg/dL (8.5-10.5) L 05/20/21 05:04 Total Bilirubin 0.2 mg/dL (0.15-1.2) 05/20/21 05:04 AST 17 U/L (0-32) 05/20/21 05:04 ALT 12 U/L (0-33) 05/20/21 05:04 Alkaline Phosphatase 75 IU/L (35-105) 05/20/21 05:04 Total Protein 5.2 g/dL (6.6-8.7) L 05/20/21 05:04 Albumin 3.3 g/dL (3.5-5.2) L 05/20/21 05:04 Globulin 1.9 g/dL (1.3-4.6) 05/20/21 05:04 Urine HCG, Qual Negative (Negative) 05/18/21 06:07 Blood Type A Positive 05/18/21 06:30 Rho(D) Type Positive 05/18/21 06:30 Antibody Screen Negative 05/18/21 06:30 Vitals Last Vital Signs Temp 98.0 F 05/20/21 09:42 Pulse 72 05/20/21 09:42 Resp 16 05/20/21 09:42 BP 134/84 05/20/21 09:42 Pulse Ox 99 05/20/21 09:42 Discharge Plan Discharge Patient Disposition: Home Condition: Stable Prescriptions: New hydrocodone-acetaminophen 5-325 mg tablet 1 tab PO Q6H Qty: 25 0RF Rx Instructions: Alternate with ibuprofen docusate sodium 100 mg Capsule 100 mg PO BID PRN (Reason: constipation) Qty: 30 0RF ibuprofen 800 mg tablet 800 mg PO Q8H Qty: 30 0RF Continued levocetirizine [24HR Allergy Relief] 5 mg tablet 5 mg PO DAILY 0RF citalopram [Celexa] 40 mg tablet 40 mg PO .every morning Qty: 30 3RF Rx Instructions: take one tablet by mouth every morning trazodone 100 mg tablet 100 mg PO DAILY PRN (Reason: insomnia) Qty: 30 3RF Rx Instructions: take 1/2 to 1 tablet at bedtime, if needed for insomnia losartan 100 mg tablet 100 mg PO DAILY 0RF ferrous sulfate 143 mg (45 mg iron) tablet extended release 286 mg PO DAILY 0RF Discharge Orders: Discharge Order (Routine); Ordered 05/20/21 Ordered By: Sandro Smiley Referrals: Sandro Smiley MD [Physician] - 05/30/21 9:30 am (Your 2 week post-operative visit is scheduled for 05/30/21 @9:30. Your 6 week post-operative visit is scheduled for 06/27/21 @12:00. ) Discharge Diet: Regular Discharge Activity: Limit activity as instructed Patient Instructions: Salpingectomy (DC), Hysterectomy (DC), OB Abdominal Surgery - [facility], OB Discharge Report, OB Food/Drug Interaction Guide, Opioid Safety Activity Restrictions/Additional Instructions: No heavy lifting for 6 weeks, pelvic rest for 6 weeks Follow-up with Dr. Sandhu in 1 week for voiding trial, 2 and 6week for incision check Emergency room precautions reviewed Discharge Attestations MAGNETIC PROSPECTING OPERATOR Time Spent in Discharge Care*: greater than 30 min Coding Level of Care Code Acute Computer Programmer Chief for Ever Milner
[2021-05-20 14:55] VITALS: BP 149/83; PULSE 83; RESP 16; TEMP 36.6; O2SAT 100
== END 2021-05-20 15:00 | disposition home or self-care (01) | DRG 743 ==
LOC: OBGYN 10:30
PROVIDERS: Urology; Admitting Provider Obstetrics & Gynecology; PCP Family Medicine; Visit Provider Obstetrics & Gynecology
PROC: 0UT90ZZ Resection of Uterus, Open Approach (ICD-10-PCS; CPT 58150; principal; 2021-05-18 07:00)
PROC: 0UT90ZZ Resection of Uterus, Open Approach (ICD-10-PCS; CPT 58700; 2021-05-18 07:00)
PROC: 0TQB0ZZ Repair Bladder, Open Approach (ICD-10-PCS; 2021-05-18 07:00)
DX: N93.9 Abnormal uterine and vaginal bleeding, unspecified (principal); N85.4 Malposition of uterus; N73.6 Female pelvic peritoneal adhesions (postinfective); N32.89 Other specified disorders of bladder; N99.81 Other intraoperative complications of genitourinary system; Z88.1 Allergy status to other antibiotic agents; Z88.2 Allergy status to sulfonamides; F31.9 Bipolar disorder, unspecified; I10 Essential (primary) hypertension; F17.210 Nicotine dependence, cigarettes, uncomplicated; Z98.890 Other specified postprocedural states
CPT/HCPCS: 36415; 36416; 51702; 80053; 81025; 82962; 84703; 85025; 85027; 86850; 86900; 87086; 88307; J1100; J1170; J1580; J2250; J2405; J2704; J2710; J3010; J3490; J7030; P9041

== ENCOUNTER → 2021-06-01 13:03 | Outpatient (BNVA) | payer OTHER, SELFPAY | PROVIDERS: PCP Family Medicine; Visit Provider Obstetrics & Gynecology | DX: R61 Generalized hyperhidrosis (principal) | CPT/HCPCS: 80053; 85025 ==

== ENCOUNTER → 2021-06-06 08:32 | Outpatient (BNVA) | payer OTHER, SELFPAY | PROVIDERS: PCP Family Medicine; Visit Provider Obstetrics & Gynecology | DX: R61 Generalized hyperhidrosis (principal) | CPT/HCPCS: 80053; 85025 ==

== ENCOUNTER → 2022-04-05 11:00 | Outpatient (BNVA) | payer OTHER, SELFPAY | PROVIDERS: PCP Family Medicine; Visit Provider Nurse Practitioner Women's Health | DX: Z11.3 Encounter for screening for infections with a predominantly sexual mode of transmission (principal); Z01.419 Encounter for gynecological examination (general) (routine) without abnormal findings | CPT/HCPCS: 86592; 86803; 87340; 87491; 87591; 87661; 87806 ==

== ENCOUNTER 2022-05-18 07:58 | Outpatient (CLI) | payer OTHER, SELFPAY ==
--- NOTE | 2022-05-18 08:07 | MM_ITS ---
WS: [id number] BILATERAL SCREENING DIGITAL TOMOSYNTHESIS MAMMOGRAM WITH CAD HISTORY: Z12.39 - Encounter for other screening for malignant neoplasm... COMPARISON: 05/12/2021 and 05/05/2019 Bilateral CC and MLO views with tomosynthesis and synthetic mammography submitted. Computer aided det ection analyzed. Breast composition: There are scattered areas of fibroglandular density. No suspicious masses, microc alcifications or architectural distortion. MM/[place] [id number] IMPRESSION: BI-RADS: 1-Negative FOLLOW UP: 1 Year Follow-up
== END 2022-05-18 07:59 | disposition home or self-care (01) ==
LOC: RAD 07:59
PROVIDERS: PCP Family Medicine; Visit Provider Nurse Practitioner Women's Health
DX: Z12.31 Encounter for screening mammogram for malignant neoplasm of breast (principal)
CPT/HCPCS: 77063; 77067

== ENCOUNTER → 2022-06-22 07:51 | Outpatient (BNVA) | payer OTHER, SELFPAY | PROVIDERS: PCP Family Medicine; Visit Provider Podiatrist Foot & Ankle Surgery | DX: M24.572 Contracture, left ankle (principal); M25.872 Other specified joint disorders, left ankle and foot | CPT/HCPCS: 73630 ==

== ENCOUNTER 2022-11-12 20:06 | Emergency (ER) | payer OTHER, SELFPAY ==
--- NOTE | 2022-11-12 20:08 | XRR_ITS ---
PROCEDURE INFORMATION: Exam: XR Left Foot Exam date and time: 11/12/2022 8:38 PM Age: 42 years old Clinical indication: Injury or trauma; Other: Hurt lt foot; Blunt trauma; Left TECHNIQUE: Imaging protocol: Radiologic exam of the left foot. Views: 3 or more views. COMPARISON: No relevant prior studies available. FINDINGS: Bones/joints: No acute fracture. No dislocation. Normal bone mineralization. No joint effusion. Joint spaces are maintained. Small calcified enthesophyte at the Achilles tendon insertion. Small plantar calcaneal bone spur. Soft tissues: No soft tissue swelling. No radiopaque foreign body. XR/XR foot LT min 3V* [id number] IMPRESSION: 1. No acute fracture of the left foot. Followup imaging recommended in 7-14 days if clinical concern for fracture persists. 2. Incidental/nonacute findings are listed in the report.
--- NOTE | 2022-11-12 20:08 | XRR_ITS ---
PROCEDURE INFORMATION: Exam: XR Left Ankle Exam date and time: 11/12/2022 8:40 PM Age: 42 years old Clinical indication: Injury or trauma; Other: Hurt lt ankle; Blunt trauma; Left TECHNIQUE: Imaging protocol: Radiologic exam of the left ankle. Views: 3 or more views. COMPARISON: No relevant prior studies available. FINDINGS: Bones/joints: No acute fracture. No dislocation. Normal bone mineralization. No joint effusion. Joint spaces are maintained. Ankle mortise is symmetric. Small calcified enthesophyte at the Achilles tendon insertion. Small plantar calcaneal bone spur. Soft tissues: No soft tissue swelling. No radiopaque foreign body. XR/XR ankle LT min 3V* [id number] IMPRESSION: 1. No acute fracture of the left ankle. Followup imaging recommended in 7-14 days if clinical concern for fracture persists. 2. Incidental/nonacute findings are listed in the report.
--- NOTE | 2022-11-12 20:13 | ED_ITS ---
HPI - Extremity Injury (Lower) General: Chief Complaint: Extremity Injury, Lower Stated Complaint: left foot hurt Time Seen by Provider: 11/12/22 20:08 History of Present Illness: 42-year-old female comes in today for complaints of injury to the left lateral ankle. Patient was at work when a pallet cart lost control causing it to gain speed and strike her against the left ankle. Patient has some pain and discomfort to the lateral part of the ankle and some numbness she reports in the lateral aspect of her foot. No obvious deformity is noted. Some light bruising and abrasion is noted to the ankle. Patient denies any chronic medical problems. Patient was referred here to the ER by her supervisor telephone information at the local [employer]. Review of Systems General: Reports: 10 or more systems reviewed and unremarkable except in HPI and below Musc: Reports: extremity pain and extremity swelling PFS ED PFSH: Medical History Bipolar disorder, unspecified Diagnosed at the age of 20. Used to be on medication managed by [facility]. Now gets refills with Dr. Beverly but does continue to have therapy with [facility]. Hypertension Diagnosed in 2019 and is on medication managed by her primary care provider. Does not have a research compliance specialist No pertinent past medical history Denies diabetes asthma seizures DVT/PE PCP: Dr. Beverly Suicide attempt (~06/2019) Surgical History S/P section x 3 --1997, 2003, 2006. S/P cholecystectomy Laparoscopic surgery in 2001 S/P tubal ligation 2006 during section Status post hysterectomy 05/18/2021----total abdominal hysterectomy with bilateral salpingectomy for abnormal uterine bleeding by Dr. Sandhu [place] [facility] [place] Intraoperative partial thickness injury to the bladder repaired by Dr. Mckeon -------> pathology showed adenomyosis but otherwise benign pathology with secretory endometrium Family History Family/Other Diabetes Maternal aunt, maternal uncle, Paternal aunt, paternal uncle Thyroid condition maternal aunt Grandmother Diabetes Maternal and paternal Uterine cancer paternal, age at diagnosis unknown Stroke maternal Grandfather Diabetes maternal Heart disease maternal Mother Hyperlipidemia Diabetes Brother Hyperlipidemia Hypertension Denies family history of Colon cancer Ovarian cancer Breast cancer Social History Substance/Drug Use: never Physical Exam Const: COMMON NORMALS: alert HENMT: COMMON NORMALS: normocephalic and atraumatic HEAD & SCALP: normocephalic and atraumatic Neck/C-Spine: COMMON NORMALS: full ROM Resp: COMMON NORMALS: normal respiratory effort Cardio: COMMON NORMALS: regular rate RATE: regular rate Extremity: LEFT LOWER EXTREMITY: Yes ankle joint (Superficial abrasion lateral ankle, posterior tenderness and swelling.) Left ankle: Yes inspection, Yes palpation, Yes ROM and Yes neurovascular exam Neuro: SENSORIUM/ORIENTATION: Yes alert Skin: TRAUMA: abrasion (Superficial left lateral ankle) Course Vital Signs: Vital signs: Vital Signs Temperature 98.0 F 11/12/22 20:21 Pulse Rate 75 11/12/22 20:21 Respiratory Rate 14 11/12/22 20:21 Blood Pressure 146/91 11/12/22 20:21 Pulse Oximetry 97 11/12/22 20:21 Oxygen Delivery Me thod Room Air 11/12/22 20:21 MDM - Extremity Injury (Lower) Medical Decision Making Patient comes in for evaluation of injuries sustained at work when a pallet cart struck her in the ankle. On exam there is a light abrasion to the left lateral ankle with some posterior swelling and tenderness. Pulses and sensation otherwise are intact. Vital signs are normal. Differential diagnosis includes but not limited to fracture, contusion, sprain. X-ray of the ankle and foot were unremarkable without signs of acute injury. Reviewed exam with patient with recommendations for further treatment and follow-up. Patient reported understanding. XR interpretation done by ED provider, pending radiology final review Discharge Plan Discharge Patient Disposition: Home Clinical Impression: Contusion of ankle, left Qualifiers: Encounter type: initial encounter Qualified Code(s): S90.02XA - Contusion of left ankle, initial encounter Condition: Stable Prescriptions: No Action levocetirizine [24HR Allergy Relief] 5 mg tablet 5 mg PO DAILY losartan 100 mg tablet 50 mg PO DAILY citalopram [Celexa] 40 mg tablet 20 mg PO .every morning Rx Instructions: take one tablet by mouth every morning Discharge Orders: Discharge ED (Routine); Ordered 11/12/22 Ordered By: Ross Alexis Referrals: Paco Beverly MD [Primary Care Provider] - Discharge Diet: Usual diet Discharge Activity: Increase activity as tolerated Patient Instructions: Contusion in Adults (ED) Activity Restrictions/Additional Instructions: Activity as tolerated. Acetaminophen or Ibuprofen for pain. follow-up with primary care in one week or as needed. Return to ER as needed Coding Level of Care Code ED Supervisor Maintenance for Ever Milner
[2022-11-12 20:21] VITALS: BP 146/91; PULSE 75; RESP 14; TEMP 36.7; O2SAT 97; BMI 32.0
[2022-11-12 21:05] VITALS: BP 144/91; PULSE 71; RESP 16; O2SAT 95
== END 2022-11-12 21:06 | disposition home or self-care (01) ==
PROVIDERS: Emergency Provider Nurse Practitioner Family; PCP Family Medicine
DX: S90.02XA Contusion of left ankle, initial encounter (principal); I10 Essential (primary) hypertension; W20.8XXA Other cause of strike by thrown, projected or falling object, initial encounter; Y99.0 Civilian activity done for income or pay
CPT/HCPCS: 73610; 73630; 99283